=== PATIENT | female | born 1940 | race Caucasian/White ===

== ENCOUNTER → 2018-08-17 08:38 | Outpatient (CLI) | payer OTHER, SELFPAY | PROVIDERS: Family Provider Internal Medicine; PCP Internal Medicine; Visit Provider Physical Medicine & Rehabilitation | DX: M48.02 Spinal stenosis, cervical region (principal); Z98.1 Arthrodesis status; Z53.9 Procedure and treatment not carried out, unspecified reason | CPT/HCPCS: 72141 ==

== ENCOUNTER → 2018-09-10 12:05 | Outpatient (CLI) | payer OTHER, SELFPAY ==
--- NOTE | 2018-09-10 12:06 | DI.MRI.S_ITS ---
PROCEDURE: MR CERVICAL SPINE WO CON INDICATIONS: Evaluation TECHNIQUE: Noncontrast sagittal T1 spin echo and T2 fast spin echo, sagittal STIR, foraminal oblique sagittal T2 fast spin echo, and axial gradient echo or T2 fast spin echo through the cervical spine. COMPARISON: [facility], CR, CERVICAL SPINE 2 OR 3 VIEWS, 10/25/2017, 9:50. [facility], MR, C-SPINE WITHOUT CONTRAST, 08/24/2017, 9:27. [facility], CR, XR CERVICAL SPINE 2 OR 3 VIEWS, 02/08/2018, 9:17. FINDINGS: Image quality: Excellent. Alignment and Curvature: There is mild, grade 1 anterolisthesis of C7 on T1, T1 on T2, and T2 and T3, as before. Bone Marrow: Marrow demonstrates normal overall signal. Status post anterior fusion of C4-T1, new compared to 08.24.17. Spinal Cord: Visualized spinal cord has normal size and signal. No cerebellar tonsillar herniation. Paraspinous Soft Tissues: No paravertebral masses. Prevertebral soft tissues are normal in thickness. C2-C3: Disc desiccation. Bilateral facet hypertrophy. No significant canal stenosis, or foraminal stenosis. No change. C3-C4: Moderate disc height loss and desiccation. Mild facet and uncovertebral hypertrophy bilaterally. No canal stenosis. Mild bilateral foraminal stenosis. No change. C4-C5: Status post fusion. Bilateral facet and uncovertebral hypertrophy. Resolution of previously seen canal stenosis. No change in moderate bilateral foraminal stenosis. C5-C6: Status post fusion. Bilateral facet and uncovertebral hypertrophy. Resolution of previously seen canal stenosis. No change in mild bilateral foraminal stenosis. C6-C7: Status post fusion. Bilateral facet and uncovertebral hypertrophy. Resolution of previously seen canal stenosis. Mild bilateral foraminal stenosis is unchanged. C7-T1: Status post fusion. Bilateral facet and uncovertebral hypertrophy. Resolution of previously seen canal stenosis. No change in moderate bilateral foraminal stenosis. IMPRESSION: 1. C4-T1 fusion, with resolution of previously seen canal stenoses at the fused levels. 2. No change in multilevel foraminal stenoses, worst at C4-C5 and C7-T1, where there are moderate foraminal stenoses present. Dictated by: Simone Amador M.D. on 09/10/2018 at 13:34 Approved by: Simone Amador M.D. on 09/10/2018 at 13:40
--- NOTE | 2018-09-10 12:06 | DI.MRI.S_ITS ---
PROCEDURE: MR LUMBAR SPINE WO CON INDICATIONS: lumbar spine pain TECHNIQUE: Noncontrast sagittal T1 spin echo and T2 fast echo, coronal T2, sagittal STIR, axial T1 and T2 fast spin echo through the lumbar spine. COMPARISON: [facility], MR, L-SPINE WITHOUT CONTRAST, 05/19/2017, 10:13. [facility], CR, L-SPINE 2-3 VIEWS, 02/24/2010, 10:16. FINDINGS: Image quality: Excellent. Alignment and Curvature: The same numbering system that was used on the prior report will be used on the current examination, as denoted on the montage panel. There is moderate rightward curvature of the mid lumbar spine. There is mild grade 1 retrolisthesis of T11 on T12 and T12 on L1. There is mild grade 1 anterolisthesis of L2 on L3 and L3 on L4. There is mild grade 1 retrolisthesis of L4 on L5. Bone Marrow: Marrow is of normal overall signal. No acute vertebral body compression fractures. Moderate reactive signal within the endplates adjacent to the the L2-L3 and L3-L4 intervertebral discs. Mild reactive signal within the endplates adjacent to the L1-L2 and L4-L5 intervertebral discs is present. Spinal Cord: Conus medullaris terminates at the lower L1 level. Visualized cord demonstrates normal signal and size. Paraspinous Soft Tissues: No paravertebral masses. T12-L1: Mild disc height loss and desiccation. Mild diffuse disc bulge. Mild facet and ligamentum flavum hypertrophy bilaterally. Mild canal stenosis. Mild foraminal stenosis bilaterally. No change. L1-L2: Moderate disc height loss and desiccation. Moderate diffuse disc bulge. Moderate facet and ligamentum flavum hypertrophy bilaterally. Mild epidural lipomatosis. Moderate canal stenosis. Moderate left and mild right foraminal stenosis. No change. L2-L3: Severe disc height loss and desiccation. Moderate diffuse disc bulge/osteophyte. Moderate facet hypertrophy. Mild ligamentum flavum hypertrophy and epidural lipomatosis. Severe canal stenosis. Severe left and mild right foraminal stenosis. Flattening deformity of the left L2 nerve root within the neural foramen. No change. L3-L4: Severe disc height loss and desiccation. Moderate diffuse disc bulge/osteophyte. Moderate facet and ligamentum flavum hypertrophy bilaterally. Moderate canal stenosis. Moderate to severe left and mild right foraminal stenosis. Mild flattening deformity of the left L3 nerve root within the neural foramen. No change. L4-L5: Severe disc height loss and desiccation. Moderate diffuse disc bulge/osteophyte. Mild facet hypertrophy bilaterally. Mild canal stenosis. Moderate foraminal stenosis bilaterally. No change. L5-S1: Moderate disc height loss and desiccation. Mild diffuse disc bulge. Mild facet hypertrophy bilaterally. Mild canal stenosis. Moderate right and mild left foraminal stenosis. No change. IMPRESSION: 1. Numbering system for the current report is identical to the numbering system which was used on the prior report, and as denoted on the montage panel. 2. Multilevel degenerative disc and facet disease, as well as ligament flavum hypertrophy and epidural lipomatosis. 3. Multilevel canal stenoses, worst at L2-L3, where there is severe canal stenosis. 4. Multilevel foraminal stenoses, worst at L2-L3 on the left, and at L3-L4 on the left, where there is associated neural flattening as described above. 5. Recommend correlation with clinical symptoms to ascertain relevance of these findings. Dictated by: Simone Amador M.D. on 09/10/2018 at 15:13 Approved by: Simone Amador M.D. on 09/10/2018 at 15:23
== END ==
PROVIDERS: PCP Internal Medicine; Visit Provider Physical Medicine & Rehabilitation
DX: M48.02 Spinal stenosis, cervical region (principal); M48.07 Spinal stenosis, lumbosacral region; M51.36 Other intervertebral disc degeneration, lumbar region; M48.062 Spinal stenosis, lumbar region with neurogenic claudication; E88.2 Lipomatosis, not elsewhere classified; M51.37 Other intervertebral disc degeneration, lumbosacral region; Z98.1 Arthrodesis status
CPT/HCPCS: 72141; 72148

== ENCOUNTER 2018-10-30 13:25 | Outpatient (CLI) | payer OTHER, SELFPAY ==
[2018-10-30] VITALS (9 sets, daily range): BP systolic 106–187; BP diastolic 60–96; PULSE 56–70; RESP 16–20; TEMP 37.2; O2SAT 96–99
--- NOTE | 2018-10-30 13:26 | DI.RAD.S_ITS ---
PROCEDURE: PAIN L/S TRANSFORAMINAL INJECT INDICATIONS: SPINAL STENOSIS FINDINGS: Fluoroscopic spot filming was performed to verify placement of spinal needles at the L3-L4 level(s), as labeled on the films. Appropriate location(s) of the needle tip(s) was confirmed by injection of iodinated contrast. Dictated by: Otto Contreras M.D. on 10/31/2018 at 9:43 Approved by: Otto Contreras M.D. on 10/31/2018 at 9:43
[2018-10-30] MEDS: MIDAZOLAM 5 MG/5 ML VIAL IV (14:54)
[2018-10-30] MEDS: BUPIVACAINE 0.25% (PF) VIAL 2 ML INJ (14:58)
[2018-10-30] MEDS: IOPAMIDOL 15 ML VIAL 3 ML INJ (14:58)
[2018-10-30] MEDS: DEXAMETHASONE 10 MG/ML VIAL 20 MG INJ (14:59)
[2018-10-30] MEDS: methylPREDNISolone acetate 80 MG/ML VIAL INJ (14:59)
--- NOTE | 2018-10-30 15:03 | PC.NURSE ---
ASSISTING PT FROM TABLE AND TRANSPORTING TO POST PROC AREA IN STABLE CONDITION
--- NOTE | 2018-10-30 15:08 | P.PCN_ITS ---
Procedures Date/Time Date of procedure: 10/30/18 Time of procedure: 15:07 General Procedure description: PROVIDER: Volodymyr Platt DO Operative Note PREOP DIAGNOSIS 1. FORAMINAL STENOSIS WITH LE SYMPTOMS, POST OP DIAGNOSIS 1. FORAMINAL STENOSIS WITH LE SYMPTOMS, PROCEDURES 1. FLUOROSCOPICALLY GUIDED CONTRAST CONTROLLED TRANSFORAMINAL EPIDURAL STEROID INJECTION - LEFT L3/4 TFESI SURGEON: Volodymyr Platt, INDICATIONS Liberty is referred by Dr. Baeza for treatment of Foraminal Stenosis with left LE Symptoms FINDINGS Foraminal Nerve Root Compression secondary to disc disease and facet hypertrophy DESCRIPTION OF PROCEDURE Following denial of allergy and review of potential side effects and complications, including, but not necessarily limited to, infection, allergic reaction, local tissue breakdown, stroke, temporary or permanent nerve injury, paralysis, and possible , the patient indicated that the patient understood and agreed to proceed. An informed consent document was signed by the patient, witnessed by a nurse, and placed in the patient's chart. Additionally, other treatment options including medications, modalities, and physical therapy were reviewed with the patient. After review of previous anaesthesic history and IV conscious sedation the patient was deemed safe to proceed with todays procedure with IV conscious sedation as ASA class II designation. Safety time-out was performed to confirm patient ID, procedure to be performed and site of procedure. IV sedation was accomplished with a combination of 3mg was administered by the RN after DO order , titrated to patient comfort during the course of the procedure while the patient remained responsive to all verbal commands In the prone position following sterile prep and drape of the lumbar region, the left L3/4 posterior neuroforamen was identified fluoroscopically. The skin was anesthetized via a 25-gauge 1.5-inch needle with 1% lidocaine solution. At this point, a 25-gauge 3.5-inch spinal needle was atraumatically introduced and advanced under fluoroscopic guidance through the posterior left L3/4 neuroforamen to approximately the anterior aspect of the canal. Depth was confirmed on lateral view. Following negative aspiration, injection of approximately 1.5 cc of Isovue 200 under live fluoroscopy in the AP view confirmed excellent flow along the nerve root, into the epidural space without vascular or intrathecal uptake observed Radiological data, including multiple fluoroscopic views of the lumbosacral spine, reveal a spinal needle at the left L3/4 posterior neuroforamen. Subsequent views show flow of contrast material flowing superiorly and inferiorly along the nerve root confirming epidural flow. Subsequently, a test dose of 1.5 cc of 1% lidocaine solution was administered and patient was observed for two minutes for signs or symptoms of complications , including abdominal pain, shortness of breath, bilateral upper or lower extremity weakness, nausea and vomiting, prior to steroid injection. At this point, a total of 3 cc or 20 mg of dexamethasone and 80mg Depo medrol was injected without incident. The patient tolerated the procedure well without signs or symptoms of complications prior to transfer to the recovery area continued monitoring without incident. The patient was then transferred to the recovery area where they were observed for an appropriate time after the injection. The patient reported a VAS score of 7 prior to the procedure and a post-procedure VAS of 0. Total Fluoroscopy Time: 24.2 seconds Total Conscious Sedation Time: 24min POST OP INSTRUCTIONS The patient was provided a Pain Log to continue to record their response to the target-specific procedure prior to follow-up visit with their referring physician. Additionally, specific post-injection care instructions and a contact number to our office were provided if concerns arise regarding possible complications associated with the procedure are suspected. Volodymyr Platt, Complications: none
--- NOTE | 2018-10-30 15:36 | PC.NURSE ---
Received pt post procedure via w/c, pt alert and cooperative, able to move from w/c to chair, resumed monitoring.
--- NOTE | 2018-10-31 12:25 | PC.NURSE ---
Follow up call made and Liberty reports pain is gone but she is an emotional mess from the steroids. I suggested that she take some Benadryl and she said she didn't have any, and that she wet her pants but her leg pain is gone and she is so grateful. She also said she had some Valium and she was going to take that. Dr. Platt aware of this.
== END 2018-10-30 15:41 ==
LOC: RAD 13:26
PROVIDERS: PCP Internal Medicine; Visit Provider Physical Medicine & Rehabilitation
DX: M48.062 Spinal stenosis, lumbar region with neurogenic claudication (principal); M51.16 Intervertebral disc disorders with radiculopathy, lumbar region; M41.20 Other idiopathic scoliosis, site unspecified; G89.29 Other chronic pain; Z98.1 Arthrodesis status
CPT/HCPCS: 64483; 99152; J1040; J1100; J2250

== ENCOUNTER 2018-12-26 09:42 | Outpatient (CLI) | payer OTHER, SELFPAY ==
[2018-12-26] VITALS (8 sets, daily range): BP systolic 110–165; BP diastolic 60–77; PULSE 56–61; RESP 16–18; TEMP 36.3; O2SAT 97–100
--- NOTE | 2018-12-26 09:43 | DI.RAD.S_ITS ---
PROCEDURE: PAIN L INTERLAMINAR/CAUDAL INJ INDICATIONS: SPINAL STENOSIS FINDINGS: Fluoroscopic spot filming was performed to verify placement of spinal needles at the L3-L4 level(s), as labeled on the films. Appropriate location(s) of the needle tip(s) was confirmed by injection of iodinated contrast. Dictated by: Otto Contreras M.D. on 12/26/2018 at 12:02 Approved by: Otto Contreras M.D. on 12/26/2018 at 12:03
[2018-12-26] MEDS: MIDAZOLAM 5 MG/5 ML VIAL IV (10:28)
[2018-12-26] MEDS: fentaNYL 100 MCG/2 ML INJ 50 MCG IV (10:35)
[2018-12-26] MEDS: BUPIVACAINE 0.25% (PF) VIAL 2 ML INJ (10:38)
[2018-12-26] MEDS: IOPAMIDOL 15 ML VIAL 3 ML INJ (10:38)
[2018-12-26] MEDS: BETAMETHASONE 30 MG/5 ML MDV 12 MG INJ (10:39)
--- NOTE | 2018-12-26 10:40 | PC.NURSE ---
assisting pt off table and transporting per WC in stable condition
--- NOTE | 2018-12-26 10:41 | P.PCN_ITS ---
Procedures Date/Time Date of procedure: 12/26/18 Time of procedure: 10:40 General Procedure description: POST OP DIAGNOSIS 1. HNP WITH RADICULAR FEATURES, 2. MULTILEVEL CENTRAL STENOSIS, PROCEDURES 1. FLUORSCOPICALLY GUIDED CONTRAST CONTROLLED INTERLAMINAR EPIDURAL STEROID INJECTION - L3/4 PHYSICIAN: Volodymyr Platt, INDICATIONS Liberty is referred by Dr. Baeza for treatment of Bilateral Foraminal Stenosis L >R LE symptoms. FINDINGS Multilevel Central Spinal Stenosis with Nerve Root Compression DESCRIPTION OF PROCEDURE Fluoroscopically guided, contrast-controlled L3/4 translaminar epidural steroid injection. Following denial of allergy and review of potential side effects and complications, including, but not necessarily limited to, infection, allergic reaction, local tissue breakdown, temporary as well as permanent nerve injury, paralysis, stroke and possible , the patient indicated that the patient understood and agreed to proceed. An informed consent document was signed by the patient, witnessed by a nurse, and placed in the patient's chart. Additionally, other treatment options including modalities, medications, and physical therapy were reviewed with the patient. After review of previous anaesthesic history and IV conscious sedation the patient was deemed safe to proceed with todays procedure with IV conscious sedation as ASA class II designation. Safety time-out was performed to confirm patient ID, procedure to be performed and site of procedure. IV sedation was accomplished with a combination of 2mg of Versed and 25mcg of Fentanyl was administered by the RN after DO order, titrated to patient comfort during the course of the procedure while the patient remained responsive to all verbal commands. In the prone position, following sterile prep and drape of the lumbar region, the L3/4 translaminar space was identified fluoroscopically. The skin was anesthetized via a 25-gauge, 1.5-inch needle with 1% lidocaine solution. At this point, a 22-gauge short bevel spinal needle was atraumatically introduced and advanced under fluoroscopic guidance into the region of the L3/4 translaminar space. Depth was confirmed on lateral view. Radiological data, including multiple fluoroscopic views of the lumbar spine, reveal a spinal needle at the L3/4 translaminar space. Lateral views then show placement of the needle in the epidural space. Subsequent views show contrast material flowing superiorly and inferiorly in the epidural space. No vascular or intrathecal uptake is observed. At this point, using loss of resistance technique with saline and air, the epidural space was entered. This was confirmed following negative aspiration with injection of approximately 1.5 cc of Isovue 200, showing excellent epidural flow without vascular or intrathecal uptake. At this point, 1 cc of 1 % lidocaine solution combined with 3 cc or 20 mg of dexamethasone and 80mg Depo medrol was injected without incident. The patient tolerated the procedure well without signs or symptoms of complications prior to transfer to the recovery area continued monitoring without incident. The patient was then transferred to the recovery area where they were observed for an appropriate period of time after the injection. The patient reported a VAS score of 6 prior to the procedure and a post- procedure VAS of 0. Total Fluoroscopy Time: 11.8 seconds Total Conscious Sedation Time: 24min POST OP INSTRUCTIONS The patient was provided a Pain Log to continue to record their response to the target-specific procedure prior to follow-up visit with their referring physician. Additionally, specific post-injection care instructions and a contact number to our office were provided if concerns arise regarding possible complications associated with the procedure are suspected. Volodymyr Platt DO Complications: none
--- NOTE | 2018-12-26 11:01 | PC.NURSE ---
pt returned from procedure via w/c, awake and alert. Able to move from w/c to chair with standby assist, Resumed monitoring.
--- NOTE | 2018-12-26 11:30 | PC.NURSE ---
pt able to bear weight but a little unsteady on her feet related to the valium and versed. Pt is going home and will rest.
== END 2018-12-26 11:16 ==
LOC: RAD 09:42
PROVIDERS: PCP Internal Medicine; Visit Provider Physical Medicine & Rehabilitation
DX: M51.16 Intervertebral disc disorders with radiculopathy, lumbar region (principal); M48.062 Spinal stenosis, lumbar region with neurogenic claudication
CPT/HCPCS: 62323; J0702; J1040; J1100; J2250; J3010

== ENCOUNTER 2019-02-13 08:41 | Outpatient (CLI) | payer OTHER, SELFPAY ==
[2019-02-13] VITALS (8 sets, daily range): BP systolic 115–147; BP diastolic 55–111; PULSE 52–61; RESP 16; TEMP 36.5; O2SAT 93–99
--- NOTE | 2019-02-13 08:42 | DI.RAD.S_ITS ---
PROCEDURE: PAIN L/S TRANSFORAMINAL INJECT INDICATIONS: SCOLIOSIS FINDINGS: Fluoroscopic spot filming was performed to verify placement of spinal needles at the L4-L5 level(s), as labeled on the films. Appropriate location(s) of the needle tip(s) was confirmed by injection of iodinated contrast. IMPRESSION: Fluoroscopy for pain management. Dictated by: Мария Riddle M.D. on 02/13/2019 at 11:04 Approved by: Мария Riddle M.D. on 02/13/2019 at 11:05
[2019-02-13] MEDS: IOPAMIDOL 15 ML VIAL 3 ML INJ (09:35)
[2019-02-13] MEDS: BUPIVACAINE 0.25% (PF) VIAL 2 ML INJ (09:36)
[2019-02-13] MEDS: DEXAMETHASONE 10 MG/ML VIAL 20 MG INJ (09:36)
[2019-02-13] MEDS: MIDAZOLAM 5 MG/5 ML VIAL IV (09:39)
[2019-02-13] MEDS: fentaNYL 100 MCG/2 ML INJ 50 MCG IV (09:39)
--- NOTE | 2019-02-13 09:50 | PC.NURSE ---
Pt tolerated procedure. 2 person assist off the table, pt awake and alert. Transferred to pre procedure room via wheelchair for continuing monitoring with [facility].
--- NOTE | 2019-02-13 10:01 | P.PCN_ITS ---
Procedures Date/Time Date of procedure: 02/13/19 Time of procedure: 10:00 General Procedure description: PREOP DIAGNOSIS 1. FORMAINAL STENOSIS WITH LE SYMPTOMS POST OP DIAGNOSIS 1. FORMAINAL STENOSIS WITH LE SYMPTOMS PROCEDURES 1. FLUOROSCOPICALLY GUIDED CONTRAST CONTROLLED TRANSFORAMINAL EPIDURAL STEROID INJECTION - LEFT L4/5 PHYSICIAN: Volodymyr Platt DO INDICATIONS: Liberty is referred by Dr. Baeza for treatment of Foraminal Stenosis with Left LE Symptoms FINDINGS Foraminal Nerve Root Compression secondary to disc disease and facet hypertrophy DESCRIPTION OF PROCEDURE: Following denial of allergy and review of potential side effects and complications, including, but not necessarily limited to, infection, allergic reaction, local tissue breakdown, stroke, temporary or permanent nerve injury, paralysis, and possible , the patient indicated that the patient understood and agreed to proceed. An informed consent document was signed by the patient, witnessed by a nurse, and placed in the patient's chart. Additionally, other treatment options including medications, modalities, and physical therapy were reviewed with the patient. After review of previous anaesthesic history and IV conscious sedation the dago ent was deemed safe to proceed with todays procedure with IV conscious sedation as ASA class II designation. Safety time-out was performed to confirm patient ID, procedure to be performed and site of procedure. IV sedation was accomplished with a combination of 1mg of Versed and 50mcg of Fentanyl administered by the RN after DO order, titrated to patient comfort during the course of the procedure while the patient remained responsive to all verbal commands In the prone position following sterile prep and drape of the lumbar region, the left L4/5 posterior neuroforamen was identified fluoroscopically. The skin was anesthetized via a 25-gauge 1.5-inch needle with 1% lidocaine solution. At this point, a 25-gauge 3.5-inch spinal needle was atraumatically introduced and advanced under fluoroscopic guidance through the posterior left L4/5 neuroforamen to approximately the anterior aspect of the canal. Depth was confirmed on lateral view. Following negative aspiration, injection of melanie roximately 1.5 cc of Isovue 200 under live fluoroscopy in the AP view confirmed excellent flow along the nerve root, into the epidural space without vascular or intrathecal uptake observed Radiological data, including multiple fluoroscopic views of the lumbosacral spine, reveal a spinal needle at the left L4/5 posterior neuroforamen. Subsequent views show flow of contrast material flowing superiorly and inferiorly along the nerve root confirming epidural flow. Subsequently, a test dose of 1.5 cc of 1% lidocaine solution was administered and patient was observed for two minutes for signs or symptoms of complications, including abdominal pain, shortness of breath, bilateral upper or lower extremity weakness, nausea and vomiting, prior to steroid injection. At this point, a total of 2cc or 20mg of dexamethasone was injected without incident. The procedure tolerated the procedure well without signs or symptoms of complications prior to transfer to the recovery area continued monitoring without incident. The patient was then transferred to the recovery area where they were observed for an appropriate time after the injection. The patient reported a VAS score of 7 prior to the procedure and a post- procedure VAS of 0. Total Fluoroscopy Time: 20.9 seconds Total Conscious Sedation Time: 24min POST OP INSTRUCTIONS The patient was provided a Pain Log to continue to record their response to the target-specific procedure prior to follow-up visit with their referring physician. Additionally, specific post-injection care instructions and a contact number to our office were provided if concerns arise regarding possible complications associated with the procedure are suspected. Volodymyr Platt DO Complications: none
--- NOTE | 2019-02-13 10:01 | PC.NURSE ---
ACCEPTED CARE OF PT IN POST PROC AREA IN STABLE CONDITION
== END 2019-02-13 10:55 | disposition home or self-care (01) ==
LOC: RAD 08:42
PROVIDERS: PCP Internal Medicine; Visit Provider Physical Medicine & Rehabilitation
DX: M48.062 Spinal stenosis, lumbar region with neurogenic claudication (principal); M51.16 Intervertebral disc disorders with radiculopathy, lumbar region; M41.20 Other idiopathic scoliosis, site unspecified
CPT/HCPCS: 64483; 99152; J1100; J2250; J3010

== ENCOUNTER → 2019-04-29 09:38 | Outpatient (CLI) | payer OTHER, SELFPAY ==
--- NOTE | 2019-04-29 09:45 | DI.CT.S_ITS ---
PROCEDURE: CT LUMBAR SPINE WO CON INDICATIONS: LUMBAR SPINAL STENOSIS TECHNIQUE: Noncontrast 3 mm thick sections acquired from the T12 level to the sacrum. Sagittal and coronal reformats were constructed. For radiation dose reduction, the following was used: automated exposure control. COMPARISON: None. FINDINGS: Image quality: Excellent. Bones: There is moderate dextroscoliosis of lumbar spine centered at L2-3 level, unchanged from prior study. Minimal anterolisthesis are noted at L2-3 and L3-4 levels. Minimal retrolisthesis of L4 on L5 is also noted. No acute vertebral body compression fractures. No suspicious lytic or blastic bony lesions. Central spinal caliber is of normal overall caliber. No pars defects. T12-L1: Diffuse disc bulge and bilateral facet arthrosis is seen with mild central canal stenosis and bilateral neural foramina narrowing. L1-L2: Decrease in intervertebral disc space and degenerative endplate changes are seen with vacuum disc phenomena. Bilateral facet arthrosis is also noted. There is broad-based disc bulge with moderate central canal stenosis and bilateral neuroforaminal narrowing. Findings are not significantly changed from previous study. L2-L3: Vacuum disc phenomenon and decreased intervertebral disc space is seen. Broad-based disc bulge and bilateral facet arthrosis is noted with moderate to severe central canal stenosis and left worse than right bilateral neuroforaminal narrowing not significantly changed from previous study. L3-L4: There is vacuum disc phenomenon and decreased intervertebral disc space. Broad-based disc bulge and bilateral facet arthrosis is seen with severe central canal stenosis and bilateral neuroforaminal narrowing not significantly changed from prior study L4-L5: Decreased intervertebral disc space and degenerative endplate changes are seen with vacuum disc phenomenon. Broad-based disc bulge and bilateral facet arthrosis is seen with mild central canal stenosis and moderate to severe bilateral neuroforaminal narrowing. L5-S1: Decreased intervertebral disc space and degenerative endplate changes are seen. There is diffuse disc bulge and bilateral facet arthrosis with mild to moderate central canal stenosis and bilateral neuroforaminal narrowing. Soft tissues: No retroperitoneal masses or hematomas. Visualized aorta is normal in caliber. IMPRESSION: 1. Degenerative disc bulge and bilateral facet arthrosis throughout lumbar spine causing moderate to severe central canal stenosis and bilateral neuroforaminal narrowing more prominent at L3-4 level, not significantly changed from 2018 study. 2. Minimal anterolisthesis of L2 on L3 and L3 on L4 and minimal retrolisthesis of L4 on L5. Moderate dextroscoliosis. No acute compression fracture. Dictated by: Michael Garduno M.D. on 04/29/2019 at 12:21 Approved by: Michael Garduno M.D. on 04/29/2019 at 12:48
== END ==
PROVIDERS: Family Provider Orthopaedic Surgery; PCP Internal Medicine; Visit Provider Neurological Surgery
DX: M48.062 Spinal stenosis, lumbar region with neurogenic claudication (principal); M47.816 Spondylosis without myelopathy or radiculopathy, lumbar region; M47.817 Spondylosis without myelopathy or radiculopathy, lumbosacral region; M51.36 Other intervertebral disc degeneration, lumbar region; M51.37 Other intervertebral disc degeneration, lumbosacral region; M41.86 Other forms of scoliosis, lumbar region
CPT/HCPCS: 72131

== ENCOUNTER → 2019-05-10 07:43 | Outpatient (CLI) | payer OTHER, SELFPAY ==
[2019-05-10 08:12] LABS: Add Manual Diff / Slide Review NO; Basophils Absolute Auto 0 /uL (0-100); Basophils Percent Auto 0.6 % (0-2); Eosinophils Absolute Auto 200 /uL (0-450); Eosinophils Percent Auto 3.4 % (2-4); Hematocrit 37.2 % (36-46); Hemoglobin 12.6 g/dL (12.0-16.0); Lymphocytes Absolute Auto 2300 /uL (1100-4500); Lymphocytes Percent Auto 37.7 % (25-40); Mean Corpuscular HGB Conc 33.8 % (30-36); Mean Corpuscular Hemoglobin 30.5 PG (26-34); Mean Corpuscular Volume 90.2 fL (80-100); Monocytes Absolute Auto 700 /uL (0-900); Monocytes Percent Auto 11.3 % (3-14); Neutrophils Absolute Auto 2900 /uL (1500-7000); Platelet Count 267 X10^3/uL (150-400); Red Blood Cell Count 4.13 X10^6/uL (4.0-5.2); Red Cell Distribution Width 13.5 % (11.6-14.8); White Blood Cell Count 6.1 X10^3/uL (4.5-11.0)
[2019-05-10 08:43] LABS: Erythrocyte Sedimentation Rate 11 MM/HR (0-20)
[2019-05-10 09:09] LABS: Alanine Aminotransferase 13 IU/L (9-52); Albumin 4.3 g/dL (3.5-5.0); Albumin Globulin Ratio 1.4 (1.0-2.8); Alkaline Phosphatase 47 U/L (38-126); Aspartate Aminotransferase 23 IU/L (14-36); BUN Creatinine Ratio 24.2 (6-22); Bilirubin Total 0.5 mg/dL (0.2-1.3); Blood Urea Nitrogen 29 mg/dL (7-17); C-Reactive Protein Quant 0.6 mg/dL (<1.0); Calcium 9.3 mg/dL (8.4-10.2); Carbon Dioxide 31 mmol/L (22-32); Chloride 101 mmol/L (98-107); Cholesterol 172 mg/dL (140-199); Estimated Glomerular Filt Rate 43.4 mL/min (>60); Glucose 102 mg/dL (80-110); HDL Cholesterol 46 mg/dL (40-60); HEMOLYSIS < 15 (0-50); LDL Cholesterol Calculated 95 mg/dL (<100); Sodium 137 mmol/L (137-145); Total Protein 7.3 g/dL (6.3-8.2); Triglycerides 154 mg/dL (35-150)
[2019-05-10 09:14] LABS: Potassium 5.6 mmol/L (3.4-5.1)
== END ==
PROVIDERS: PCP Internal Medicine; Visit Provider Internal Medicine
DX: E78.5 Hyperlipidemia, unspecified (principal); G89.4 Chronic pain syndrome; I10 Essential (primary) hypertension
CPT/HCPCS: 36415; 80053; 80061; 85025; 85651; 86140

== ENCOUNTER → 2019-08-02 14:06 | Outpatient (CLI) | payer OTHER, SELFPAY ==
--- NOTE | 2019-08-02 | DI.RAD.S_ITS ---
PROCEDURE: XR LUMBAR SPINE 2-3V INDICATIONS: SPINAL SURGERY TECHNIQUE: 3 views of the lumbar spine were acquired. COMPARISON: [facility], CT, CT LUMBAR SPINE WO CON, 04/29/2019, 9:46. [facility], CR, L-SPINE 2-3 VIEWS, 02/24/2010, 10:16. FINDINGS: Bones: 5 [id number] vertebrae are present. Mild dextroscoliosis centered at the L3 level. Interval posterior/interbody fusion at the L2-L3 level with hardware in expected positions. Multilevel disc degeneration and lower lumbar spine facet joint arthropathy redemonstrated. Bones are osteopenic. No vertebral body compression fractures. No suspicious bony lesions. Soft tissues: Overlying bowel gas pattern is normal. No suspicious soft tissue calcifications. Vascular calcifications indicate atherosclerosis. IMPRESSION: 1. Interval posterior/interbody fusion at the L2-L3 level. 2. Multilevel degenerative change and diffuse osteopenia. Dictated by: Scooby RM Interpreted: Otto Contreras MD on 08/02/2019 at 15:50 Approved by: Otto Contreras M.D. on 08/02/2019 at 17:23
== END ==
PROVIDERS: Family Provider Internal Medicine; PCP Internal Medicine; Visit Provider Physician Assistant Medical
DX: M51.36 Other intervertebral disc degeneration, lumbar region (principal); M41.86 Other forms of scoliosis, lumbar region; M48.061 Spinal stenosis, lumbar region without neurogenic claudication; M85.88 Other specified disorders of bone density and structure, other site; Z98.1 Arthrodesis status
CPT/HCPCS: 72100

== ENCOUNTER → 2020-01-08 15:14 | Outpatient (CLI) | payer OTHER, SELFPAY | PROVIDERS: Family Provider Internal Medicine; PCP Internal Medicine; Referring Provider Ophthalmology; Visit Provider Ophthalmology | DX: H16.4 Corneal neovascularization (principal) | CPT/HCPCS: 87070; 87075; 87077; 87110; 87140; 87147; 87186; 87205; 87252 ==

== ENCOUNTER → 2020-05-01 09:29 | Outpatient (CLI) | payer OTHER, SELFPAY ==
[2020-05-01 10:44] LABS: Add Manual Diff / Slide Review NO; Basophils Absolute Auto 0 /uL (0-100); Basophils Percent Auto 0.6 % (0-2); Eosinophils Absolute Auto 200 /uL (0-450); Eosinophils Percent Auto 2.8 % (2-4); Hematocrit 40.1 % (36-46); Hemoglobin 13.6 g/dL (12.0-16.0); Lymphocytes Absolute Auto 2400 /uL (1100-4500); Lymphocytes Percent Auto 32.8 % (25-40); Mean Corpuscular Hemoglobin 30.7 PG (26-34); Mean Corpuscular Volume 90.5 fL (80-100); Monocytes Absolute Auto 700 /uL (0-900); Monocytes Percent Auto 9.6 % (3-14); Neutrophils Absolute Auto 4000 /uL (1500-7000); Neutrophils Percent Auto 54.2 % (50-75); Platelet Count 285 X10^3/uL (150-400); Red Blood Cell Count 4.43 X10^6/uL (4.0-5.2); Red Cell Distribution Width 13.7 % (11.6-14.8); White Blood Cell Count 7.4 X10^3/uL (4.5-11.0)
[2020-05-01 11:34] LABS: Alanine Aminotransferase 14 IU/L (<35); Albumin 4.7 g/dL (3.5-5.0); Albumin Globulin Ratio 1.3 (1.0-2.8); Alkaline Phosphatase 58 U/L (38-126); Aspartate Aminotransferase 29 IU/L (14-36); BUN Creatinine Ratio 23.9 (6-22); Bilirubin Total 0.5 mg/dL (0.2-1.3); Blood Urea Nitrogen 21 mg/dL (7-17); Calcium 9.6 mg/dL (8.4-10.2); Carbon Dioxide 29 mmol/L (22-32); Chloride 102 mmol/L (98-107); Cholesterol 195 mg/dL (140-199); Estimated Glomerular Filt Rate > 60.0 mL/min (>60); Globulin 3.5 g/dL (1.7-4.1); Glucose 105 mg/dL (80-110); HDL Cholesterol 46 mg/dL (40-60); HEMOLYSIS < 15 (0-50); LDL Cholesterol Calculated 113 mg/dL (<100); Potassium 4.3 mmol/L (3.4-5.1); Sodium 139 mmol/L (137-145); Total Protein 8.2 g/dL (6.3-8.2); Triglycerides 180 mg/dL (35-150)
== END ==
PROVIDERS: Family Provider Internal Medicine; PCP Internal Medicine; Referring Provider Internal Medicine; Visit Provider Internal Medicine
DX: I10 Essential (primary) hypertension (principal); N18.2 Chronic kidney disease, stage 2 (mild)
CPT/HCPCS: 36415; 80053; 80061; 85025

== ENCOUNTER → 2021-08-23 11:34 | Outpatient (CLI) | payer OTHER, SELFPAY ==
--- NOTE | 2021-08-23 | DI.CT.S_ITS ---
PROCEDURE: CT CERVICAL SPINE WO CON INDICATIONS: Spinal stenosis TECHNIQUE: Noncontrast 3 mm thick sections acquired from the skull base to the T4 level. Sagittal and coronal reformats were then constructed. For radiation dose reduction, the following was used: automated exposure control, adjustment of mA and/or kV according to patient size. COMPARISON: [facility], MR, MR CERVICAL SPINE WO CON, 09/10/2018, 12:31. [facility], CR, XR CERVICAL SPINE 2 OR 3 VIEWS, 08/03/2021, 15:14. FINDINGS: Image quality: Excellent. Bones: No fractures or dislocations. Visualized superior ribs are intact. There is extensive anterior fusion ranging from C4 through T1. There is grade 1 anterolisthesis of C2 on C3, C4 on C5, C7 on T1 and T1 on T2 measuring approximately 2 mm, 2 mm, 3 mm, 2 mm respectively. Hardware appears intact without evidence of hardware fracture. There is periprosthetic lucency surrounding the orthopedic screws, left greater than right at T1. No disc bulge or spinal stenosis. Mild left foraminal narrowing is present at C2-3, slightly progressive, [id number] bilateral C3-4, progressive moderate to severe left and moderate right C4-5, slightly progressive, moderate bilateral C5-6, slightly progressive, mild bilateral C6-7, stable, [id number] bilateral C7-T1, stable. No spinal stenosis is present. Multilevel uncovertebral hypertrophy is present. Soft tissues: Prevertebral soft tissues are normal in thickness. No paravertebral hematomas. No apical pneumothoraces. IMPRESSION: 1. Extensive postsurgical changes, with focal level of periprosthetic lucency suggestive of loosening as described above. 2. No spinal stenosis. 3. Multilevel foraminal narrowing with areas of progression as noted above. Dictated by: Juanita Mcadniel M.D. on 08/23/2021 at 15:42 Approved by: Juanita Mcdaniel M.D. on 08/23/2021 at 15:52
[2021-08-23 12:48] LABS: Alanine Aminotransferase 13 IU/L (<35); Albumin 4.6 g/dL (3.5-5.0); Albumin Globulin Ratio 1.4 (1.0-2.8); Alkaline Phosphatase 48 U/L (38-126); Aspartate Aminotransferase 27 IU/L (14-36); BUN Creatinine Ratio 30.4 (6-22); Bilirubin Total 0.4 mg/dL (0.2-1.3); Blood Urea Nitrogen 28 mg/dL (7-17); Carbon Dioxide 31 mmol/L (22-32); Chloride 100 mmol/L (98-107); Estimated Glomerular Filt Rate 58.7 mL/min (>60); Globulin 3.4 g/dL (1.7-4.1); Glucose 92 mg/dL (80-110); HEMOLYSIS < 15 (0-50); Potassium 4.7 mmol/L (3.4-5.1); Sodium 138 mmol/L (137-145)
== END ==
PROVIDERS: Family Provider Internal Medicine; PCP Internal Medicine; Referring Provider Orthopaedic Surgery Orthopaedic Surgery of the Spine; Visit Provider Orthopaedic Surgery Orthopaedic Surgery of the Spine
DX: M48.02 Spinal stenosis, cervical region (principal); E78.2 Mixed hyperlipidemia; I12.9 Hypertensive chronic kidney disease with stage 1 through stage 4 chronic kidney disease, or unspecified chronic kidney disease; N18.31 Chronic kidney disease, stage 3a; Z98.1 Arthrodesis status
CPT/HCPCS: 36415; 72125; 80053

== ENCOUNTER 2022-07-02 17:14 | Emergency (ER) | payer OTHER, SELFPAY ==
[2022-07-02 17:15] VITALS: BP 192/81; PULSE 58; RESP 18; TEMP 36.6; O2SAT 97; BMI 22.0
--- NOTE | 2022-07-02 17:32 | DI.RAD.S_ITS ---
PROCEDURE: XR SHOULDER LT MIN 2V INDICATIONS: fall TECHNIQUE: 3 views of the shoulder were acquired. COMPARISON: None. FINDINGS: Bones: No fractures or dislocations. No suspicious bony lesions. Visualized ribs appear intact. Mild degenerative changes of the acromioclavicular and glenohumeral joints. Postsurgical changes of lower cervical fusion incompletely evaluated. Soft tissues: Imaged lungs are clear. Small enthesophytes/hydroxyapatite deposition is noted at the humeral head adjacent to the greater trochanter. IMPRESSION: No acute osseous abnormality. Dictated by: Julio Araiza D.O. on 07/02/2022 at 17:35 Approved by: Julio Araiza D.O. on 07/02/2022 at 17:37
--- NOTE | 2022-07-02 17:33 | DI.CT.S_ITS ---
PROCEDURE: CT HEAD/BRAIN WO CON INDICATIONS: fall TECHNIQUE: Noncontrast 4.5 mm thick angled axial sections acquired from the foramen magnum to the vertex, with coronal and sagittal reformats. For radiation dose reduction, the following was used: automated exposure control, adjustment of mA and/or kV according to patient size. COMPARISON: None. FINDINGS: Image quality: Excellent. CSF spaces: Basal cisterns are patent. No extra-axial fluid collections. The ventricles are symmetric in size and shape. Brain: No intracranial bleeds or masses. There is cerebral volume loss for age, with resultant ventricular and sulcal prominence. There are periventricular and deep white matter chronic small vessel ischemic changes. There is intracranial internal carotid artery atherosclerosis. Skull and face: Calvarium and visualized facial bones appear intact, without suspicious lesions. There is a moderate-sized left prefrontal/preorbital subscalp hematoma. Sinuses: Visualized sinuses and mastoids are clear. IMPRESSION: 1. No acute intracranial abnormalities. 2. Cerebral volume loss and chronic microvascular ischemic changes. Dictated by: Мария Riddle M.D. on 07/02/2022 at 18:31 Approved by: Мария Riddle M.D. on 07/02/2022 at 18:32
--- NOTE | 2022-07-02 17:33 | DI.CT.S_ITS ---
PROCEDURE: CT CERVICAL SPINE WO CON INDICATIONS: fall TECHNIQUE: Noncontrast 3 mm thick sections acquired from the skull base to the T4 level. Sagittal and coronal reformats were then constructed. For radiation dose reduction, the following was used: automated exposure control, adjustment of mA and/or kV according to patient size. COMPARISON: [facility], CT, CT CERVICAL SPINE WO CON, 08/23/2021, 12:25. FINDINGS: Image quality: Excellent. Bones: No fractures or dislocations. There is grade 1 anterolisthesis of C2 on C3. There are postsurgical changes with discectomy and anterior fusion at C4-T1. T2 and C3 may be fused. There is mild degenerative disc disease at C2-C3. Multilevel facet arthropathy bilaterally, most pronounced at C2-C3. Moderate atlantoaxial joint degeneration. Visualized superior ribs are intact. Soft tissues: Prevertebral soft tissues are normal in thickness. No paravertebral hematomas. No apical pneumothoraces. Atherosclerotic calcifications at the carotid bifurcations bilaterally. Calcification of aortic arch. IMPRESSION: 1. No acute cervical spine fracture. 2. Degenerative and postsurgical changes in cervical spine. Dictated by: Мария Riddle M.D. on 07/02/2022 at 18:26 Approved by: Мария Riddle M.D. on 07/02/2022 at 18:30
[2022-07-02 17:56] LABS: Add Manual Diff / Slide Review NO; Basophils Absolute Auto 100 /uL (0-100); Basophils Percent Auto 0.6 % (0-2); Eosinophils Absolute Auto 200 /uL (0-450); Eosinophils Percent Auto 2.9 % (2-4); Hematocrit 35.3 % (36-46); Lymphocytes Absolute Auto 1500 /uL (1100-4500); Lymphocytes Percent Auto 19.7 % (25-40); Mean Corpuscular HGB Conc 33.9 % (30-36); Mean Corpuscular Hemoglobin 29.7 PG (26-34); Mean Corpuscular Volume 87.5 fL (80-100); Monocytes Absolute Auto 800 /uL (0-900); Monocytes Percent Auto 9.9 % (3-14); Neutrophils Absolute Auto 5200 /uL (1500-7000); Neutrophils Percent Auto 66.9 % (50-75); Platelet Count 288 X10^3/uL (150-400); Red Blood Cell Count 4.03 X10^6/uL (4.0-5.2); Red Cell Distribution Width 13.6 % (11.6-14.8); White Blood Cell Count 7.8 X10^3/uL (4.5-11.0)
[2022-07-02 18:06] LABS: Alanine Aminotransferase 14 IU/L (<35); Albumin 4.7 g/dL (3.5-5.0); Albumin Globulin Ratio 1.3 (1.0-2.8); Alkaline Phosphatase 57 U/L (38-126); Aspartate Aminotransferase 26 IU/L (14-36); BUN Creatinine Ratio 33.3 (6-22); Bilirubin Total 0.5 mg/dL (0.2-1.3); Blood Urea Nitrogen 32 mg/dL (7-17); Carbon Dioxide 25 mmol/L (22-32); Chloride 100 mmol/L (98-107); Estimated Glomerular Filt Rate 59 mL/min (>60); Globulin 3.7 g/dL (1.7-4.1); Glucose 113 mg/dL (80-110); HEMOLYSIS < 15 (0-50); Sodium 135 mmol/L (137-145); Total Protein 8.4 g/dL (6.3-8.2)
--- NOTE | 2022-07-02 18:16 | ED.FALL ---
HPI - Fall <Cordell Parra PA-C - Last Filed: 07/02/22 19:46> General Chief Complaint: Fall Stated Complaint: GLF to head, blood thinners Time Seen by Provider: 07/02/22 17:47 Source: patient and family Mode of arrival: Wheelchair History of Present Illness HPI Narrative: Patient is a 82-year-old female who presents to the ER today with complaint of pain and swelling to her face. Patient's face to pain and swelling occurred after she fell in her garden today. Patient states she feels as though she lost her footing while her shoes got stuck and then she fell. Patient also admits to falling in the past. Patient states she fell during a walk which she was going up in on even see that path. The patient also states she has some pain to her left shoulder that also occurred after the fall. Patient admits to taking hydrocodone and gabapentin for pain and states she did take those medications today. Patient denies any other concerns at this time. Related Data Home Medications Medication Instructions Recorded Confirmed cholecalciferol (vitamin D3) 10 400 unit PO ##0 03/05/18 05/19/22 mcg (400 unit) capsule (Vitamin D3) multivitamin (Multiple Vitamins ##0 03/05/18 05/19/22 tablet) celecoxib 200 mg capsule 200 mg PO DAILY PRN 05/19/22 05/19/22 Previous Rx's Medication Instructions Recorded atenolol 100 mg tablet 100 mg PO QDAY #90 tabs 07/23/21 hydrochlorothiazide 25 mg tablet 25 mg PO QDAY #90 tabs 08/03/21 potassium chloride 10 mEq 10 meq PO QDAY #90 caps 09/06/21 capsule,extended release citalopram 20 mg tablet See Rx Instructions .Route 09/09/21 .COMPLEX #90 tabs pantoprazole 40 mg tablet,delayed 40 mg PO QDAY #90 tabs 11/23/21 release (Protonix) gabapentin 300 mg capsule See Rx Instructions .Route 03/16/22 .COMPLEX #180 caps bacitracin 500 unit/gram topical 1 applic topical TID #28 grams 05/19/22 ointment hydrocodone 7.5 mg-acetaminophen 2 tab PO Q4H PRN pain in 07/01/22 325 mg tablet neck/joints #360 tabs Allergies Allergy/AdvReac Type Severity Reaction Status Date / Time tetanus and diphtheria Allergy Severe edema, Verified 05/19/22 14:36 toxoids fever [TETANUS & DIPHTHERIA TOXOIDS] hydroxyzine Allergy Intermediate Tachycardia Verified 05/19/22 14:36 adhesive tape [ADHESIVE TAPE] Allergy Mild REDNESS, Verified 05/19/22 14:36 EDEMA PAPER/SILK TAPE OK codeine [CODEINE] Allergy Mild ITCHING Verified 05/19/22 14:36 iodine [IODINE] Allergy Mild REDNESS, Verified 05/19/22 14:36 HEAT TOPICAL USE Mosquitoes/Fleas Allergy Severe Bad Uncoded 05/19/22 14:36 reaction to these bites. Puffs up Patient History <Cordell Parra PA-C - Last Filed: 07/02/22 19:46> Medical History Cervical stenosis of spinal canal Chronic pain syndrome Chronic renal failure, stage 3a Essential hypertension Fibromyalgia Gastroesophageal reflux disease without esophagitis GERD (gastroesophageal reflux disease) History of migraine headaches Hyperlipidemia (08/04/11) Lumbar stenosis with neurogenic claudication Major depressive disorder (08/04/11) Osteoarthritis PSVT (paroxysmal supraventricular tachycardia) Scoliosis (and kyphoscoliosis), idiopathic Uncomplicated opioid dependence Surgical History S/P cervical spinal fusion Social History Smoking Status: Never smoker Smoking Status: Never smoker Substance Use Type: does not use Exam <Cordell Parra PA-C - Last Filed: 07/02/22 19:46> Narrative Exam Narrative: Patient has a 2.5 cm abrasion to the left cheek area. Patient also has a 2.5 cm bruise to the left eyebrow proximal to the left eye. To bruises carpal shaped dark in color. Patient also had a 1.5 cm abrasion to the proximal left palm of her left hand. Patient has a 1 cm diameter laceration to her right pinky dorsal side area. Both left and right hands have minimal additional erythema and minimal to no swelling. Initial Vital Signs Initial Vital Signs: Vital Signs Temperature 97.8 F 07/02/22 17:15 Pulse Rate 58 L 07/02/22 17:15 Respiratory Rate 18 07/02/22 17:15 Blood Pressure 192/81 H 07/02/22 17:15 Pulse Oximetry 97 07/02/22 17:15 Oxygen Delivery Method 07/02/22 17:15 Chest Chest: normal inspection of the chest Resp Effort & Inspection: normal respiratory effort, able to speak in complete sentences, no audible wheezes and no respiratory distress Auscultation: clear to auscultation bilaterally GI Inspection: normal to inspection Palpation: soft and No tender Percussion: normal to percussion Auscultation: normal bowel sounds and normoactive bowel sounds <Jia Meng DO - Last Filed: 07/04/22 02:30> Initial Vital Signs Initial Vital Signs: Vital Signs Temperature 97.8 F 07/02/22 17:15 Pulse Rate 58 L 07/02/22 17:15 Respiratory Rate 18 07/02/22 17:15 Blood Pressure 192/81 H 07/02/22 17:15 Pulse Oximetry 97 07/02/22 17:15 Oxygen Delivery Method 07/02/22 17:15 Course <Cordell Parra PA-C - Last Filed: 07/02/22 19:46> Orders Ordered: Discontinued Medications Hydrocodone Bitart/Acetaminophen (Hydrocodone/Acet 5/325 Tablet) 1 tab PO NOW ONE Stop: 07/02/22 19:04 Last Admin: 07/02/22 19:46 Dose: 1 tab Documented By: NR Bacitracin (Bacitracin Oint 0.9 Gm Pckt) 1 applic TOP NOW ONE Stop: 07/02/22 19:40 Last Admin: 07/02/22 19:49 Dose: Not Given Documented By: NR Ketorolac Tromethamine (Ketorolac 30 Mg/Ml Vial) 15 mg IM NOW ONE Stop: 07/02/22 19:14 Last Admin: 07/02/22 19:46 Dose: 15 mg Documented By: NR Vital Signs Vital signs: Vital Signs - 8 hr 07/02/22 17:15 Temperature 97.8 F Pulse Rate 58 L Respiratory Rate 18 Blood Pressure 192/81 H Pulse Oximetry 97 Oxygen Delivery Method Room Air <Jia Meng DO - Last Filed: 07/04/22 02:30> Orders Ordered: Discontinued Medications Hydrocodone Bitart/Acetaminophen (Hydrocodone/Acet 5/325 Tablet) 1 tab PO NOW ONE Stop: 07/02/22 19:04 Last Admin: 07/02/22 19:46 Dose: 1 tab Documented By: NR Bacitracin (Bacitracin Oint 0.9 Gm Pckt) 1 applic TOP NOW ONE Stop: 07/02/22 19:40 Last Admin: 07/02/22 19:49 Dose: Not Given Documented By: NR Ketorolac Tromethamine (Ketorolac 30 Mg/Ml Vial) 15 mg IM NOW ONE Stop: 07/02/22 19:14 Last Admin: 07/02/22 19:46 Dose: 15 mg Documented By: NR Vital Signs Vital signs: Vital Signs - 8 hr 07/02/22 17:15 Temperature 97.8 F Pulse Rate 58 L Respiratory Rate 18 Blood Pressure 192/81 H Pulse Oximetry 97 Oxygen Delivery Method Room Air MDM - Fall <Cordell Parra PA-C - Last Filed: 07/02/22 19:46> Lab Data Result diagrams: 07/02/22 17:38 07/02/22 17:38 Labs: Lab Results 07/02/22 07/02/22 Range/Units 17:38 17:38 WBC 7.8 (4.5-11.0) X10^3/uL RBC 4.03 (4.0-5.2) X10^6/uL Hgb 12.0 (12.0-16.0) g/dL Hct 35.3 L (36-46) % MCV 87.5 (80-100) fL MCH 29.7 (26-34) PG MCHC 33.9 (30-36) % RDW 13.6 (11.6-14.8) % Plt Count 288 (150-400) X10^3/uL Neut % (Auto) 66.9 (50-75) % Lymph % (Auto) 19.7 L (25-40) % [place] % (Auto) 9.9 (3-14) % Eos % (Auto) 2.9 (2-4) % Baso % (Auto) 0.6 (0-2) % Neut # (Auto) 5200 (3969-3508) /uL Lymph # (Auto) 1500 (1410-4527) /uL [place] # (Auto) 800 (0-900) /uL Eos # (Auto) 200 (0-450) /uL Baso # (Auto) 100 (0-100) /uL Sodium 135 L (137-145) mmol/L Potassium 4.0 (3.4-5.1) mmol/L Chloride 100 (98-107) mmol/L Carbon Dioxide 25 (22-32) mmol/L BUN 32 H (7-17) mg/dL Creatinine 0.96 (0.52-1.04) mg/dL Estimated GFR 59 L (>60) mL/min BUN/Creatinine Ratio 33.3 H (6-22) Glucose 113 H (80-110) mg/dL Calcium 9.0 (8.4-10.2) mg/dL Total Bilirubin 0.5 (0.2-1.3) mg/dL AST 26 (14-36) IU/L ALT 14 (<35) IU/L Alkaline Phosphatase 57 (38-126) U/L Total Protein 8.4 H (6.3-8.2) g/dL Albumin 4.7 (3.5-5.0) g/dL Globulin 3.7 (1.7-4.1) g/dL Albumin/Globulin Ratio 1.3 (1.0-2.8) Imaging Data CT scan - head: Radiologist's Impression: PROCEDURE:? CT HEAD/BRAIN WO CON ? INDICATIONS:? fall ? TECHNIQUE:? Noncontrast 4.5 mm thick angled axial sections acquired from the foramen magnum to the vertex, with coronal and sagittal reformats.? For radiation dose reduction, the following was used:? automated exposure control, adjustment of mA and/or kV according to patient size.? ? COMPARISON:? None. ? FINDINGS:? Image quality:? Excellent.? ? CSF spaces:? Basal cisterns are patent.? No extra-axial fluid collections.? The ventricles are symmetric in size and shape.? ? Brain:? No intracranial bleeds or masses.? There is cerebral volume loss for age, with resultant ventricular and sulcal prominence.? There are periventricular and deep white matter chronic small vessel ischemic changes.? There is intracranial internal carotid artery atherosclerosis.? ? Skull and face:? Calvarium and visualized facial bones appear intact, without suspicious lesions.? ? There is a moderate-sized left prefrontal/preorbital subscalp hematoma. ? Sinuses:? Visualized sinuses and mastoids are clear.? ? IMPRESSION:? ? 1. No acute intracranial abnormalities. ? 2. Cerebral volume loss and chronic microvascular ischemic changes. ? ? ? Dictated by: Мария Riddle M.D. on 07/02/2022 at 18:31 ? ? Approved by: Мария Riddle M.D. on 07/02/2022 at 18:32 ? Extremity x-ray #1: Radiologist's Impression: PROCEDURE:? CT CERVICAL SPINE WO CON ? INDICATIONS:? fall ? TECHNIQUE:? Noncontrast 3 mm thick sections acquired from the skull base to the T4 level.? Sagittal and coronal reformats were then constructed.? For radiation dose reduction, the following was used:? automated exposure control, adjustment of mA and/or kV according to patient size.? ? COMPARISON:? [facility], CT, CT CERVICAL SPINE WO CON, 08/23/2021, 12:25. ? FINDINGS:? Image quality:? Excellent.? ? Bones:? No fractures or dislocations.? There is grade 1 anterolisthesis of C2 on C3.? There are postsurgical changes with discectomy and anterior fusion at C4-T1.? T2 and C3 may be fused.? There is mild degenerative disc disease at C2-C3.? Multilevel facet arthropathy bilaterally, most pronounced at C2-C3.? Moderate atlantoaxial joint degeneration.? Visualized superior ribs are intact.? ? Soft tissues:? Prevertebral soft tissues are normal in thickness.? No paravertebral hematomas.? No apical pneumothoraces.? Atherosclerotic calcifications at the carotid bifurcations bilaterally.? Calcification of aortic arch. ? ? IMPRESSION:? ? 1. No acute cervical spine fracture.? 2. Degenerative and postsurgical changes in cervical spine.? Dictated by: Мария Riddle M.D. on 07/02/2022 at 18:26 ? ? Approved by: Мария Riddle M.D. on 07/02/2022 at 18:30 ? Extremity x-ray #2: Radiologist's Impression: PROCEDURE:? XR SHOULDER LT MIN 2V ? INDICATIONS:? fall ? TECHNIQUE:? 3 views of the shoulder were acquired.? ? COMPARISON:? None. ? FINDINGS:? ? Bones:? No fractures or dislocations.? No suspicious bony lesions.? Visualized ribs appear intact.? Mild degenerative changes of the acromioclavicular and glenohumeral joints.? Postsurgical changes of lower cervical fusion incompletely evaluated. ? Soft tissues:? Imaged lungs are clear.? Small enthesophytes/hydroxyapatite deposition is noted at the humeral head adjacent to the greater trochanter. ? IMPRESSION:? ? No acute osseous abnormality. ? ? Dictated by: Julio Araiza D.O. on 07/02/2022 at 17:35 ? ? Approved by: Julio Araiza D.O. on 07/02/2022 at 17:37 ? ECG Data Attestation: I personally reviewed and interpreted this ECG as follows: (Normal sinus rhythm) Interpretation: ECG results displayed normal sinus rhythm ECG rhythm also reviewed by Dr. Meng. MDM Narrative Medical decision making narrative: Patient is a 82-year-old female who presented to the ER today with pain and swelling to her face left shoulder and back. Patient states this started after she fell in her garden today. Patient denies loss of consciousness fever chills nausea vomiting GI or concerns associated with this event. Patient also admits to taking hydrocodone for pain but did not more than her prescribed medications today. CT scan of head is confirmed negative x-rays of cervical spine and left shoulder were also negative. Patient denies any concerns history of urinary tract infections or abdominal or flank pain at this time. Blood glucose levels were not unremarkable. Vital signs do not reflect concerns for attention. Vitals ordered hydrocodone and Toradol for pain. The nurse to clean and apply dressing 2 abrasions. <Jia Meng, DO - Last Filed: 07/04/22 02:30> Lab Data Labs: Lab Results 07/02/22 07/02/22 Range/Units 17:38 17:38 WBC 7.8 (4.5-11.0) X10^3/uL RBC 4.03 (4.0-5.2) X10^6/uL Hgb 12.0 (12.0-16.0) g/dL Hct 35.3 L (36-46) % MCV 87.5 (80-100) fL MCH 29.7 (26-34) PG MCHC 33.9 (30-36) % RDW 13.6 (11.6-14.8) % Plt Count 288 (150-400) X10^3/uL Neut % (Auto) 66.9 (50-75) % Lymph % (Auto) 19.7 L (25-40) % [place] % (Auto) 9.9 (3-14) % Eos % (Auto) 2.9 (2-4) % Baso % (Auto) 0.6 (0-2) % Neut # (Auto) 5200 (1447-3442) /uL Lymph # (Auto) 1500 (1502-9921) /uL [place] # (Auto) 800 (0-900) /uL Eos # (Auto) 200 (0-450) /uL Baso # (Auto) 100 (0-100) /uL Sodium 135 L (137-145) mmol/L Potassium 4.0 (3.4-5.1) mmol/L Chloride 100 (98-107) mmol/L Carbon Dioxide 25 (22-32) mmol/L BUN 32 H (7-17) mg/dL Creatinine 0.96 (0.52-1.04) mg/dL Estimated GFR 59 L (>60) mL/min BUN/Creatinine Ratio 33.3 H (6-22) Glucose 113 H (80-110) mg/dL Calcium 9.0 (8.4-10.2) mg/dL Total Bilirubin 0.5 (0.2-1.3) mg/dL AST 26 (14-36) IU/L ALT 14 (<35) IU/L Alkaline Phosphatase 57 (38-126) U/L Total Protein 8.4 H (6.3-8.2) g/dL Albumin 4.7 (3.5-5.0) g/dL Globulin 3.7 (1.7-4.1) g/dL Albumin/Globulin Ratio 1.3 (1.0-2.8) ECG Data Interpretation: ECG results displayed normal sinus rhythm ECG rhythm also reviewed by Dr. Meng. Yusra normal sinus rhythm rate 64 TX interval 156 year S [address] changes no T-wave inversions similar to previous EKG Discharge Plan Departure Patient Disposition: Home Clinical Impression: Fall, Abrasion, Fall as cause of accidental injury at home as place of occurrence Instructions: How to Prevent Falls, DI for Abrasion Activity Restrictions/Additional Instructions: *You have been diagnosed with pain to face, abrasions to face & extremities and left shoulder pain secondary to fall. *What to do: *Please continue to take your regular medications as directed. *Please follow up with your primary care provider in 2-3 days, call for an appointment. Let them know you were seen in the Emergency Department and that we ask that you be seen in follow up. We will electronically transmit a record of today's note if your PCP is in our system *If you do not have a primary care provider please contact the [facility] Resource line at [phone]. They will ask some questions about your medical history and help get you set up with a doctor in the community. *Return to Emergency Department if you should have any new, worsening or concerning symptoms, such as [fever greater than 101 F, shaking chills, worsening pain, persistent vomiting or other bothersome symptoms] Prescriptions: No Action multivitamin [Multiple Vitamins] 1 EACH tablet Qty: 0 cholecalciferol (vitamin D3) [Vitamin D3] 400 UNIT capsule 400 unit PO Qty: 0 atenolol 100 mg tablet 100 mg PO QDAY Qty: 90 3RF hydrochlorothiazide 25 mg tablet 25 mg PO QDAY Qty: 90 3RF potassium chloride 10 mEq capsule, extended release 10 meq PO QDAY Qty: 90 3RF citalopram 20 mg tablet See Rx Instructions .ROUTE .COMPLEX Qty: 90 3RF Dose Instruction: TAKE 1 TABLET BY MOUTH EVERY DAY Rx Instructions: TAKE 1 TABLET BY MOUTH EVERY DAY pantoprazole [Protonix] 40 mg tablet,delayed release (DR/EC) 40 mg PO QDAY Qty: 90 3RF gabapentin 300 mg capsule See Rx Instructions .ROUTE .COMPLEX Qty: 180 1RF Dose Instruction: TAKE 1 CAPSULE BY MOUTH THREE TIMES DAILY Rx Instructions: TAKE 1 CAPSULE BY MOUTH THREE TIMES DAILY hydrocodone-acetaminophen 7.5-325 mg tablet 2 tab PO Q4H MDD 90 mg hydrocodone PRN (Reason: pain in neck/joints) Qty: 360 0RF celecoxib 200 mg capsule 200 mg PO DAILY PRN bacitracin 500 unit/gram ointment 1 applic topical TID Qty: 28 3RF Referrals: Jude Baeza MD [Primary Care Provider] - Visit Report Forms: Patient Portal/API <Jia Meng DO - Last Filed: 07/04/22 02:30> Cosign ED Attending Petrature Attestation: I was immediately available in the department for consultation. Documentation has been reviewed. I agree with assessment and plan.
[2022-07-02] MEDS: KETOROLAC 30 MG/ML VIAL 15 MG IM (19:46)
[2022-07-02] MEDS: HYDROCODONE/ACET 5/325 TABLET 1 TAB PO (19:46)
[2022-07-02 20:07] VITALS: BP 191/88; PULSE 66; RESP 18; O2SAT 97
== END 2022-07-02 20:09 | disposition home or self-care (01) ==
PROVIDERS: Emergency Medicine; Emergency Provider Physician Assistant; Family Provider Internal Medicine; PCP Internal Medicine
DX: S00.81XA Abrasion of other part of head, initial encounter (principal); S00.12XA Contusion of left eyelid and periocular area, initial encounter; S60.512A Abrasion of left hand, initial encounter; R07.9 Chest pain, unspecified; W19.XXXA Unspecified fall, initial encounter
CPT/HCPCS: 70450; 72125; 73030; 80053; 85025; 93005; 96372; 99284; J1885

== ENCOUNTER 2023-09-16 21:15 | Emergency (ER) | payer OTHER, SELFPAY ==
[2023-09-16] VITALS (8 sets, daily range): BP systolic 190–213; BP diastolic 78–100; PULSE 62–77; RESP 18; TEMP 36.6; O2SAT 95–98; BMI 24.0
--- NOTE | 2023-09-16 21:20 | ED_ITS ---
HPI - Abdominal Pain General Chief Complaint: Abdominal Pain Stated Complaint: abpain Time Seen by Provider: 09/16/23 21:20 Source: patient, EMS, RN notes reviewed and old records reviewed Mode of arrival: EMS Limitations: no limitations History of Present Illness HPI narrative: 83-year-old female with history of chronic pain, chronic kidney disease, GERD, paroxysmal SVT, hypertension with complaint of sudden onset of right upper quadrant abdominal pain starting about 4:30 p.m. today. Patient states she was lying on her bed when it started. Nothing seems to make it worse or better. She denies fevers. She did have some nausea and dry heaves and route with EMS. Denies chest pain or shortness of breath, no passing out. She states she is had normal bowel movements with no black or bloody stool. She denies dysuria, urgency or frequency. Patient denies any back or flank pain. She has not had similar symptoms in the past. She states she does think it is her gallbladder. Patient states she is not had her regular narcotic pain medication today but has had her other regular medications. She denies prior cholecystectomy, states she is had prior back surgery but no abdominal surgeries. No tobacco, alcohol or illicit. Dr. Baeza is her primary care physician. Related Data Home Medications Medication Instructions Recorded Confirmed cholecalciferol (vitamin D3) 10 400 unit PO ##0 03/05/18 04/07/23 mcg (400 unit) capsule (Vitamin D3) multivitamin (Multiple Vitamins ##0 03/05/18 04/07/23 tablet) Previous Rx's Medication Instructions Recorded hydrochlorothiazide 25 mg tablet 25 mg PO QDAY #90 tabs 09/02/22 citalopram 20 mg tablet 20 mg PO DAILY #90 tabs 10/10/22 atenolol 100 mg tablet 100 mg PO QDAY #90 tabs 11/08/22 potassium chloride 10 mEq 10 meq PO QDAY #90 caps 11/14/22 capsule,extended release pantoprazole 40 mg tablet,delayed 40 mg PO QDAY #90 tabs 12/05/22 release (Protonix) hydrocodone 7.5 mg-acetaminophen 2 tab PO Q4H PRN pain in 08/21/23 325 mg tablet neck/joints #360 tabs gabapentin 300 mg capsule 300 mg PO TID #180 caps 09/15/23 Allergies Allergy/AdvReac Type Severity Reaction Status Date / Time tetanus and diphtheria Allergy Severe edema, Verified 09/16/23 21:19 toxoids fever [TETANUS & DIPHTHERIA TOXOIDS] hydroxyzine Allergy Intermediate Tachycardia Verified 09/16/23 21:19 adhesive tape [ADHESIVE TAPE] Allergy Mild REDNESS, Verified 09/16/23 21:19 EDEMA PAPER/SILK TAPE OK codeine [CODEINE] Allergy Mild ITCHING Verified 09/16/23 21:19 iodine [IODINE] Allergy Mild REDNESS, Verified 09/16/23 21:19 HEAT TOPICAL USE Mosquitoes/Fleas Allergy Severe Bad Uncoded 04/07/23 14:46 reaction to these bites. Puffs up Review of Systems Review of Systems ROS Unobtainable: All systems reviewed & are unremarkable except as noted in HPI and below Patient History Medical History Uncomplicated opioid dependence Chronic renal failure, stage 3a Lumbar stenosis with neurogenic claudication Scoliosis (and kyphoscoliosis), idiopathic History of migraine headaches Gastroesophageal reflux disease without esophagitis Essential hypertension Hyperlipidemia (08/04/11) Major depressive disorder (08/04/11) PSVT (paroxysmal supraventricular tachycardia) Fibromyalgia GERD (gastroesophageal reflux disease) Chronic pain syndrome Osteoarthritis Cervical stenosis of spinal canal Surgical History S/P cervical spinal fusion Social History Smoking Status: Never smoker Smoking Status: Never smoker Substance Use Type: does not use Exam Narrative Exam Narrative: GENERAL: Alert and oriented x three, elderly female in moderate distress. HEENT: Head normocephalic, atraumatic, EOMI, pupils reactive, face symmetric, moist mucous membranes NECK: Supple, full range of motion CARDIOVASCULAR: Regular rate and rhythm without murmurs, rubs or gallops. RESPIRATORY: Breath sounds equal bilaterally, no wheezes rales or rhonchi. ABDOMEN: Soft, patient is tender particularly left lower quadrant but states it actually radiates to her right upper abdomen, she is somewhat tender on right upper quadrant less so in the right lower. Normoactive bowel sounds all 4 quadrants. No guarding or rebound, rigidity, no mass, no pulsatile mass or bruit. : No CVA tenderness EXTREMITIES: Normal range of motion, no clubbing or edema. Neurovascularly intact. 2+ pulses bilateral lower extremities. NEUROLOGICAL: Cranial nerves II through XII grossly intact. Moving all extremities SKIN: Warm, dry, no petechiae, no rashes or lesions. Initial Vital Signs Initial Vital Signs: Vital Signs Temperature 97.8 F 09/16/23 21:19 Pulse Rate 62 09/16/23 21:19 Respiratory Rate 18 09/16/23 21:19 Blood Pressure 207/95 H 09/16/23 21:19 Pulse Oximetry 98 09/16/23 21:19 Oxygen Delivery Method Room Air 09/16/23 21:19 Course Orders Ordered: Discontinued Medications Aspirin (Aspirin 81 Mg Chew Tab) 324 mg PO NOW ONE Stop: 09/17/23 00:13 Last Admin: 09/17/23 00:24 Dose: 324 mg Documented By: DREW Atorvastatin Calcium (Atorvastatin 20 Mg Tablet) 80 mg PO NOW ONE Stop: 09/17/23 02:47 Last Admin: 09/17/23 03:23 Dose: 80 mg Documented By: LISETTE Heparin Sodium (Porcine) (Heparin 5,000 Unit/Ml Vial) 4,000 unit IV NOW ONE Stop: 09/17/23 02:42 Last Admin: 09/17/23 02:54 Dose: 4,000 unit Documented By: LISETTE Hydromorphone HCl (Hydromorphone 1 Mg Inj) 1 mg IV NOW ONE Stop: 09/17/23 00:34 Last Admin: 09/17/23 00:39 Dose: 1 mg Documented By: DREW Hydromorphone HCl (Hydromorphone 0.5 Mg Inj) 0.5 mg IV NOW ONE Stop: 09/17/23 02:06 Last Admin: 09/17/23 02:11 Dose: 0.5 mg Documented By: LISETTE Hydromorphone HCl (Hydromorphone 0.5 Mg Inj) 0.5 mg IV NOW ONE Stop: 09/17/23 04:27 Last Admin: 09/17/23 04:29 Dose: 0.5 mg Documented By: LISETTE Hydromorphone HCl (Hydromorphone 0.5 Mg Inj) 0.5 mg IV Q2H PRN PRN Reason: Pain, Moderate (4-6) Hydromorphone HCl (Hydromorphone 1 Mg Inj) 1 mg IV NOW ONE Stop: 09/17/23 05:07 Last Admin: 09/17/23 05:14 Dose: 1 mg Documented By: LISETTE Hydromorphone HCl (Hydromorphone 1 Mg Inj) 1 mg IV NOW ONE Stop: 09/17/23 07:32 Last Admin: 09/17/23 07:36 Dose: 1 mg Documented By: KIRBY Sodium Chloride (Normal Saline 0.9%) 1,000 mls @ 1,000 mls/hr IV BOLUS ONE Stop: 09/16/23 22:28 Last Infusion: 09/16/23 23:19 Dose: Infused Documented By: Admin: 09/16/23 22:08 Dose: 1,000 mls/hr Documented By: DREW Heparin Sodium/Dextrose (Heparin Drip) 25,000 unit in 500 mls @ 17.255 mls/hr IV CONT MECCA; Protocol Last Admin: 09/17/23 03:47 Dose: 12 units/kg/hr, 17.255 mls/hr Documented By: LISETTE Co-signed By: RUDOLPH Nitroglycerin (Nitroglycerin) 50 mg in 250 mls @ 1.5 mls/hr IV TITRATE MECCA; Protocol Last Titration: 09/17/23 05:31 Dose: 0 mcg/min, 0 mls/hr Documented By: Admin: 09/17/23 03:10 Dose: 5 mcg/min, 1.5 mls/hr Documented By: LISETTE DILTIAZEM (Diltiazem 125 Mg/125 Ml-D5w) 125 mg in 125 mls @ 5 mls/hr IV TITRATE MECCA; Protocol Last Titration: 09/17/23 07:59 Dose: 10 mg/hr, 10 mls/hr Documented By: Admin: 09/17/23 06:55 Dose: 5 mg/hr, 5 mls/hr Documented By: LISETTE Metoprolol Tartrate (Metoprolol Tartrate 5 Mg/5 Ml Inj) 5 mg IV Q5M MECCA Stop: 09/17/23 05:56 Last Admin: 09/17/23 06:09 Dose: 5 mg Documented By: Admin: 09/17/23 05:48 Dose: 5 mg Documented By: Admin: 09/17/23 05:42 Dose: 5 mg Documented By: LISETTE Morphine Sulfate (Morphine 4 Mg/Ml Inj) 4 mg IV NOW ONE Stop: 09/16/23 21:30 Last Admin: 09/16/23 21:52 Dose: 4 mg Documented By: DREW Morphine Sulfate (Morphine 4 Mg/Ml Inj) 4 mg IV NOW ONE Stop: 09/16/23 23:01 Last Admin: 09/16/23 23:08 Dose: 4 mg Documented By: DREW Nitroglycerin (Nitroglycerin 0.4 Mg Sl Tab) 0.4 mg SL [id number] PRN PRN Reason: Chest Pain Last Admin: 09/17/23 00:25 Dose: 0.4 mg Documented By: DREW Ondansetron HCl (Ondansetron 4 Mg/2 Ml Inj) 4 mg IV NOW ONE Stop: 09/16/23 21:30 Last Admin: 09/16/23 21:52 Dose: 4 mg Documented By: DREW Vital Signs Vital signs: Vital Signs - 8 hr 09/16/23 22:08 09/16/23 22:09 09/16/23 22:09 Temperature Pulse Rate 75 67 Respiratory Rate Blood Pressure 194/85 H Pulse Oximetry 95 Oxygen Delivery Method 09/16/23 22:30 09/16/23 22:30 09/16/23 23:00 Temperature Pulse Rate 77 77 Respiratory Rate Blood Pressure 190/100 H Pulse Oximetry 95 97 Oxygen Delivery Method 09/16/23 23:00 09/16/23 23:30 09/16/23 23:31 Temperature Pulse Rate 69 69 Respiratory Rate Blood Pressure 213/94 H Pulse Oximetry 96 97 Oxygen Delivery Method 09/16/23 23:31 09/17/23 00:00 09/17/23 00:01 Temperature Pulse Rate 74 73 Respiratory Rate Blood Pressure 190/78 H Pulse Oximetry 96 97 Oxygen Delivery Method 09/17/23 00:01 09/17/23 00:30 09/17/23 00:31 Temperature Pulse Rate 85 84 Respiratory Rate Blood Pressure 176/77 H Pulse Oximetry 95 96 Oxygen Delivery Method 09/17/23 00:31 09/17/23 01:00 09/17/23 01:00 Temperature Pulse Rate 72 Respiratory Rate Blood Pressure 114/59 L 157/69 H Pulse Oximetry 94 Oxygen Delivery Method 09/17/23 01:33 09/17/23 01:34 09/17/23 01:34 Temperature Pulse Rate 89 89 Respiratory Rate Blood Pressure 188/78 H Pulse Oximetry 96 99 Oxygen Delivery Method 09/17/23 02:00 09/17/23 02:16 09/17/23 02:16 Temperature Pulse Rate 77 79 Respiratory Rate Blood Pressure 163/78 H Pulse Oximetry 95 96 Oxygen Delivery Method 09/17/23 02:30 09/17/23 02:30 09/17/23 03:00 Temperature Pulse Rate 79 79 Respiratory Rate 21 Blood Pressure 172/74 H Pulse Oximetry 95 96 Oxygen Delivery Method 09/17/23 03:05 09/17/23 03:05 09/17/23 03:10 Temperature Pulse Rate 79 80 Respiratory Rate 16 Blood Pressure 150/70 H 150/70 H Pulse Oximetry 95 Oxygen Delivery Method 09/17/23 03:30 09/17/23 03:30 09/17/23 03:40 Temperature Pulse Rate 77 81 Respiratory Rate 9 L 23 Blood Pressure 166/71 H Pulse Oximetry 95 92 Oxygen Delivery Method 09/17/23 03:40 09/17/23 04:05 09/17/23 04:06 Temperature Pulse Rate 81 79 Respiratory Rate 14 Blood Pressure 162/78 H Pulse Oximetry 92 94 Oxygen Delivery Method Room Air 09/17/23 04:06 09/17/23 04:10 09/17/23 04:10 Temperature Pulse Rate 76 Respiratory Rate 12 Blood Pressure 175/80 H 173/73 H Pulse Oximetry 95 Oxygen Delivery Method 09/17/23 04:20 09/17/23 04:20 09/17/23 04:30 Temperature 99.5 F Pulse Rate 79 Respiratory Rate 12 Blood Pressure 155/80 H 162/91 H Pulse Oximetry 95 Oxygen Delivery Method 09/17/23 04:30 09/17/23 04:41 09/17/23 04:41 Temperature Pulse Rate 82 77 Respiratory Rate 19 12 Blood Pressure 153/77 H Pulse Oximetry 96 93 Oxygen Delivery Method 09/17/23 04:50 09/17/23 04:50 09/17/23 05:00 Temperature Pulse Rate 77 Respiratory Rate 13 Blood Pressure 155/74 H 156/76 H Pulse Oximetry 93 Oxygen Delivery Method 09/17/23 05:00 09/17/23 05:10 09/17/23 05:10 Temperature Pulse Rate 79 80 Respiratory Rate 17 17 Blood Pressure 164/74 H Pulse Oximetry 93 91 Oxygen Delivery Method 09/17/23 05:20 09/17/23 05:20 Temperature Pulse Rate 123 H Respiratory Rate 13 Blood Pressure 153/73 H Pulse Oximetry 92 Oxygen Delivery Method MDM - Abdominal Pain Lab Data 09/16/23 21:29 09/16/23 21:29 Labs: Lab Results 09/16/23 09/16/23 09/16/23 Range/Units 21:29 23:20 23:30 WBC 12.8 H (4.5-11.0) X10^3/uL RBC 4.27 (4.0-5.2) X10^6/uL Hgb 13.5 (12.0-16.0) g/dL Hct 40.4 (36-46) % MCV 94.7 (80-100) fL MCH 31.7 (26-34) PG MCHC 33.5 (30-36) % RDW 13.6 (11.6-14.8) % Plt Count 224 (150-400) X10^3/uL Neut % (Auto) 85.6 H (50-75) % Lymph % (Auto) 7.9 L (25-40) % [place] % (Auto) 5.8 (3-14) % Eos % (Auto) 0.3 L (2-4) % Baso % (Auto) 0.4 (0-2) % Neut # (Auto) 07736 H (5853-8159) /uL Lymph # (Auto) 1000 L (2710-2500) /uL [place] # (Auto) 700 (0-900) /uL Eos # (Auto) 0 (0-450) /uL Baso # (Auto) 0 (0-100) /uL APTT 29 (26-36) SECONDS Sodium 135 L (137-145) mmol/L Potassium 3.3 L (3.4-5.1) mmol/L Chloride 94 L (98-107) mmol/L Carbon Dioxide 27 (22-32) mmol/L BUN 30 H (7-17) mg/dL Creatinine 0.80 (0.52-1.04) mg/dL Estimated GFR > 60 (>60) mL/min BUN/Creatinine Ratio 37.5 H (6-22) Glucose 149 H (80-110) mg/dL Lactate (0.7-2.1) mmol/L Calcium 9.8 (8.4-10.2) mg/dL Total Bilirubin 0.6 (0.2-1.3) mg/dL AST 37 H (14-36) IU/L ALT 23 (<35) IU/L Alkaline Phosphatase 64 (38-126) U/L Total Creatine Kinase 69 (30-135) U/L Troponin I 0.014 0.094 H (0.01-0.034) ng/mL NT-Pro-B Natriuret Pep 1790 H (<450) pg/mL Total Protein 9.1 H (6.3-8.2) g/dL Albumin 4.8 (3.5-5.0) g/dL Globulin 4.3 H (1.7-4.1) g/dL Albumin/Globulin Ratio 1.1 (1.0-2.8) Lipase 64 (23-300) U/L Urine RBC None seen (0-5/HPF) Urine WBC None seen (0-5/HPF) Ur Squamous Epith Cells None seen (0-5/HPF) Urine Bacteria None seen (None) Ur Culture Indicated? Cult not indicated 09/17/23 09/17/23 Range/Units 01:48 03:05 WBC (4.5-11.0) X10^3/uL RBC (4.0-5.2) X10^6/uL Hgb (12.0-16.0) g/dL Hct (36-46) % MCV (80-100) fL MCH (26-34) PG MCHC (30-36) % RDW (11.6-14.8) % Plt Count (150-400) X10^3/uL Neut % (Auto) (50-75) % Lymph % (Auto) (25-40) % [place] % (Auto) (3-14) % Eos % (Auto) (2-4) % Baso % (Auto) (0-2) % Neut # (Auto) (5941-7625) /uL Lymph # (Auto) (0612-3096) /uL [place] # (Auto) (0-900) /uL Eos # (Auto) (0-450) /uL Baso # (Auto) (0-100) /uL APTT (26-36) SECONDS Sodium (137-145) mmol/L Potassium (3.4-5.1) mmol/L Chloride (98-107) mmol/L Carbon Dioxide (22-32) mmol/L BUN (7-17) mg/dL Creatinine (0.52-1.04) mg/dL Estimated GFR (>60) mL/min BUN/Creatinine Ratio (6-22) Glucose (80-110) mg/dL Lactate 1.3 (0.7-2.1) mmol/L Calcium (8.4-10.2) mg/dL Total Bilirubin (0.2-1.3) mg/dL AST (14-36) IU/L ALT (<35) IU/L Alkaline Phosphatase (38-126) U/L Total Creatine Kinase (30-135) U/L Troponin I 0.210 H* (0.01-0.034) ng/mL NT-Pro-B Natriuret Pep (<450) pg/mL Total Protein (6.3-8.2) g/dL Albumin (3.5-5.0) g/dL Globulin (1.7-4.1) g/dL Albumin/Globulin Ratio (1.0-2.8) Lipase (23-300) U/L Urine RBC (0-5/HPF) Urine WBC (0-5/HPF) Ur Squamous Epith Cells (0-5/HPF) Urine Bacteria (None) Ur Culture Indicated? Point of care testing: Urine Dip Bedside Urine Glucose Negative Bedside Urine Bilirubin - Negative Bedside Urine Ketone +/- 5 Urine Specific Clubb 1.010 Bedside Urine Occult Blood - Negative Bedside Urine pH 6.0 Bedside Urine Protein - Negative Bedside Urine Urobilinogen - Negative Bedside Urine Nitrite - Negative Bedside Urine Leukocytes +/- [address] scan - abdomen/pelvis: Radiologist's Impression: [place] [address] CT Scan Report Signed Patient: Liberty Dixon MR#: [id number] : 1940 Acct:[id number] Age/Sex: 83 / F Date of Service: 09/16/23 Loc: ED Accession Number: [id number] Procedure: CT abdomen pelvis w con Ordering Provider: Lennie Velez D.O. PROCEDURE: CT ABDOMEN PELVIS W CON INDICATIONS: Sudden onset RUQ pain. TECHNIQUE: After the administration of intravenous contrast, axial sections acquired from the lung bases to the pubic symphysis. Coronal and sagittal reformats were performed. For radiation dose reduction, the following was used: automated exposure control, adjustment of mA and/or kV according to patient size. COMPARISON: None. FINDINGS: Image quality: Excellent. Lung bases: Unremarkable. Heart: No significant findings. ABDOMEN: Liver: Unremarkable. Gallbladder: Unremarkable. Biliary ducts: Unremarkable. Pancreas: Unremarkable. Spleen: Unremarkable. Adrenal Glands: Unremarkable. Kidneys and Ureters: Unremarkable. Stomach and Bowel: Stomach, small bowel loops, and colon are unremarkable. Peritoneum: No abnormal intraperitoneal fluid. No free air. Within the abdomen and pelvis there are areas of small bowel fluid filling without distension, a nonspecific CT appearance that can be potentially a manifestation of mild enteritis. Ventral Wall: No hernias. Abdominal Nodes: No retroperitoneal or mesenteric adenopathy by size criteria. Vessels: Aorta and inferior vena cava are normal in size. PELVIS: Pelvic Organs: Unremarkable. Bladder: Unremarkable. Pelvic Nodes: No enlarged lymph nodes. Miscellaneous: No hernias are seen. Bones: Unremarkable. IMPRESSION: In the area of current clinical concern, right upper quadrant, no definite acute disease is found. Please note that noncalcified gallstones will not be accurately detected by CT scanning. Therefore follow-up limited right upper quadrant ultrasound may become necessary. As noted above there are several areas within the abdomen and pelvis with small-bowel loops that are fluid filled but not distended. Mild enteritis can produce such an appearance. Dictated by: Douglas Jimenez M.D. on 09/16/2023 at 22:37 Approved by: Douglas Jimenez M.D. on 09/16/2023 at 22:41 CTA chest/abd/pelvis: Radiologist's Impression: [place] [address] CT Scan Report Signed Patient: Liberty Dixon MR#: [id number] : 1940 Acct:[id number] Age/Sex: 83 / F Date of Service: 09/17/23 Loc: ED Accession Number: [id number] Procedure: CT angio chest abdomen pelvis Ordering Provider: Lennie Velez D.O. PROCEDURE: CT ANGIO CHEST ABDOMEN PELVIS INDICATIONS: Abdominal pain, +troponin, hypertension. TECHNIQUE: Precontrast 5 mm thick sections acquired from the lung apices to the iliac crests. After the administration of intravenous contrast, 2.5 mm thick sections again acquired from the lung apices to the iliac crests. Maximum intensity projection (MIP) oblique sagittal and coronal reformats were then acquired. For radiation dose reduction, the following was used: automated exposure control. COMPARISON: None. FINDINGS: Image quality: Excellent. AORTA: Intramural hematoma: Absent Maximum hematoma thickness: Not applicable Focal contrast enhancement: Intramural blood pool (< 2 mm neck or imperceptible communication with aortic lumen): Absent . Ulcer-like projection (broad communication with aortic lumen > 3 mm): Absent . Dissection: Absent [place] classification: Not applicable Maximum aortic diameter: Normal caliber Periaortic hematoma: Absent . CHEST: Lungs and pleura: No acute airspace opacities. No pleural effusions or pneumothorax. Central and peripheral airways are patent and normal in caliber. Mediastinum: Heart size is normal. No pericardial effusion. No mediastinal or hilar adenopathy by size criteria. Central pulmonary arteries are normal in size. Esophagus is normal in caliber. No hiatal hernias. Bones and chest wall: No axillary adenopathy by size criteria. Thyroid gland appears normal where well seen . No suspicious bony lesions. No vertebral body compression fractures. ABDOMEN: Vasculature: Celiac trunk and mesenteric arteries are patent. Renal arteries are also patent. Solid organs: Liver is normal in size and enhancement. Gallbladder is free of inflammation or calcified gallstone . Biliary system is non dilated. Pancreas enhances normally. Spleen is normal in size and enhancement. No adrenal nodules. Both kidneys are normal in size and enhancement, without hydronephrosis. Peritoneum and bowel: No free fluid or air. Bowel loops are normal in caliber and wall thickness. Nodes and vessels: No retroperitoneal or mesenteric adenopathy by size criteria. Inferior vena cava is normal in morphology. Miscellaneous: No ventral hernias. PELVIS: Genitourinary: Bladder wall thickness is normal. Miscellaneous: No inguinal hernias or adenopathy. No ventral hernias. Bones: No suspicious bony lesions. No vertebral body compression fractures. IMPRESSION: Source of current symptoms is not found. No sign of aortic dissection, rupture, or aneurysm. Atherosclerotic calcific plaquing involving the aorta and its main tributaries is relatively prominent in this patient, but currently no arterial occlusion is found. Dictated by: Douglas Jimenez M.D. on 09/17/2023 at 2:09 Approved by: Douglas Jimenez M.D. on 09/17/2023 at 2:13 ECG Data Attestation: I personally reviewed and interpreted this ECG as follows: Interpretation: Sinus rhythm nonspecific ST change. Rate of 66 AR 160, QRS 84 QTC 425. Patient has no priors for comparison. EKG sinus rhythm rate of 71 AR 164 QRS [address] QTC [address] No acute ST elevation depression noted patient does not have nonspecific EKGs on 2nd. EKG3. Sinus rhythm rate of 70 6p are 158 QRS is 78 QTC 481. No acute ST elevation depression appreciated. Patient's EKG does not show any clear dynamic changes from 2nd to 3rd. EKG 4: AFib with RVR rate of 125 QRS is 76 QTC [address]. No acute ST elevation appreciated patient does have depression in V4-V6. MDM Narrative Medical decision making narrative: 83-year-old female who presents with complaint of fairly abrupt onset of abdominal pain this evening had some dry heaving here in the department, hypotensive, no tachycardia fever. Patient is tender sort of generalized in her abdomen she seems to be most tender in left lower quadrant states it actually radiates up to the right upper quadrant. She states most of her pain is localized there. CT abdomen pelvis as her abdominal exam seems more generalized pain, labs, EKG showed nonspecific change, repeat does not show change but no new ST elevation or depression. CBC shows white count of 12.8, leftward shift normal hemoglobin and platelet. Sodium 135 potassium 3.3 chloride 94, BUN 30 patient does tend to run elevated, normal creatinine of 0.8, CO2 is 27 with a glucose of 149 AST is 37 bilirubin is normal at 0.6 ALT is 23 alk-phos is normal at 64 with negative lipase. Troponin was 0.041, repeat troponin as patient has not clear cause for abdomianl pain is trending upward in indeterminant range. poc urine shows leuks, microscopic is negative. CT abd/pelvis shows shows no acute change, nonspecific appearance with areas of small bowel fluid feeling without distention could represent mild enteritis. Patient received pain medications, antiemetics on recheck. Patient states pain improved but is still present, was given additional dose. Blood pressures been somewhat up and down up to 200 systolic but back down 177 on recheck for her saw systolic. Patient denied any chest pain or pressure but does have some abdominal pain could be referred she is 83-year-old female. Patient and I reviewed her findings. Her EKG her labs so far will give aspirin, nitro, blood pressure is 177 currently on repeat physical exam she still denies any chest pain or pressure shortness of breath states more abdomen on palpation she indicates it is more her lower abdomen. We will repeat imaging with CT angio. BNP was added on 1700 no priors for comparison, patient is not hypoxic, CT angio does not show any pulmonary edema, aorta shows no acute changes, no pericardial effusion, no obvious pulmonary emboli are appreciated, patient does not have any aortic dissection, rupture aneurysm there is atherosclerotic calcific plaquing of the aorta and its major tributaries relatively prominent but no arterial occlusion is found. Patient did not have any improvement with nitro she is somewhat resistant to receiving it. She did have some improvement with the initial morphine but was given additional dose of Dilaudid which was much more helpful.' Discussed with Cardiology, Dr. Pittman, recommends continue to trend troponins if flattening then less suspicious but if trending upwards would recommend treating as NSTEMI, heparin, asa, nitro Discussed findings and recommendations for from cardiology. Patient is open to transfer and interventions. Troponin trending upwards and now positive on set at 0.12 was 0.094 on the prior in 0.014 prior to that. Patient states does not have any discomfort in her chest but has epigastric pain radiating down into her belly. CT angio was obtained does not show aneurysm, dissection, does not show any obvious changes that are elsewhere, no obvious pulmonary emboli are appreciated pericardial effusion. We will treat as NSTEMI. Heparin was initiated, aspirin had already been received. Statin, we will try nitro drip although was not helpful earlier sublingual and patient blood pressure may not tolerate. [facility] patient, contacted [facility] and Dr. Jeanne Alvarenga gave authorization for transfer to [facility]. Patient accepted at , Dr. Manley accepts for transfer. Discussed with patient she is reluctant to transfer but discussed she needs specialty care that we do not have available here. She is concerned she is primary caregiver for her . She does have a daughter coming. After further discussion patient is agreeable to transfer. Patient continues to have significant pain and seems increased after nitro gtt. Lactate was repeated as pain has been mostly abdominal, negative at 1.3 making ischemic gut much less likely. Patient complains of abdominal pain but is only mild to moderately tender on abdomen. Patient flipped into atrial fibrillation with RVR. Rate of 125 QRS 76 QTC 493. Patient does appear to have some depression in lateral lead. No acute elevation. Patient is currently on heparin. Re-contacted Dr. Santoyo at . Updated on change with rhythm, now in Afib with rvr. ST depression lateral leads. Persistent pain. Lactate obtained is 1.3 at 0305 draw after persistent pain for 6+ hours making ischemic gut unlikely. She agrees with holding nitro gtt at this time. Recommends metoprolol IV first line to see if this improves rate control for beta blockade. If in adequate can add diltiazem drip. Does not require change in bed assignment currently but asks for recontact if hypotensive or other changes. Critical Care Time Critical Care Time Critical Care Time: Yes Total Critical Care Time: 55 Attestation: The high probability of a clinically significant, sudden or life threatening deterioration of the [cardiac, pulm] system(s) required my full and direct attention, intervention and personal management. The aggregate critical care time was [45] minutes. This time is in addition to time spent performing reported procedures but includes the following: [x] Data Review and interpretation [x] Patient assessment and monitoring of vital signs [x] Documentation [x] Medication orders and management Discharge Plan Departure Patient Disposition: [facility] Clinical Impression: Non-ST elevation [place] (NSTEMI) Prescriptions: No Action multivitamin [Multiple Vitamins] 1 EACH tablet Qty: 0 cholecalciferol (vitamin D3) [Vitamin D3] 400 UNIT capsule 400 unit PO Qty: 0 hydrochlorothiazide 25 mg tablet 25 mg PO QDAY Qty: 90 3RF citalopram 20 mg tablet 20 mg PO DAILY Qty: 90 3RF atenolol 100 mg tablet 100 mg PO QDAY Qty: 90 3RF potassium chloride 10 mEq capsule, extended release 10 meq PO QDAY Qty: 90 3RF pantoprazole [Protonix] 40 mg tablet,delayed release (DR/EC) 40 mg PO QDAY Qty: 90 3RF hydrocodone-acetaminophen 7.5-325 mg tablet 2 tab PO Q4H MDD 90 mg hydrocodone PRN (Reason: pain in neck/joints) Qty: 360 0RF gabapentin 300 mg capsule 300 mg PO TID Qty: 180 3RF Referrals: Jude Baeza MD [Primary Care Provider] -
--- NOTE | 2023-09-16 21:29 | DI.CT.S_ITS ---
PROCEDURE: CT ABDOMEN PELVIS W CON INDICATIONS: Sudden onset RUQ pain. TECHNIQUE: After the administration of intravenous contrast, axial sections acquired from the lung bases to the pubic symphysis. Coronal and sagittal reformats were performed. For radiation dose reduction, the following was used: automated exposure control, adjustment of mA and/or kV according to patient size. COMPARISON: None. FINDINGS: Image quality: Excellent. Lung bases: Unremarkable. Heart: No significant findings. ABDOMEN: Liver: Unremarkable. Gallbladder: Unremarkable. Biliary ducts: Unremarkable. Pancreas: Unremarkable. Spleen: Unremarkable. Adrenal Glands: Unremarkable. Kidneys and Ureters: Unremarkable. Stomach and Bowel: Stomach, small bowel loops, and colon are unremarkable. Peritoneum: No abnormal intraperitoneal fluid. No free air. Within the abdomen and pelvis there are areas of small bowel fluid filling without distension, a nonspecific CT appearance that can be potentially a manifestation of mild enteritis. Ventral Wall: No hernias. Abdominal Nodes: No retroperitoneal or mesenteric adenopathy by size criteria. Vessels: Aorta and inferior vena cava are normal in size. PELVIS: Pelvic Organs: Unremarkable. Bladder: Unremarkable. Pelvic Nodes: No enlarged lymph nodes. Miscellaneous: No hernias are seen. Bones: Unremarkable. IMPRESSION: In the area of current clinical concern, right upper quadrant, no definite acute disease is found. Please note that noncalcified gallstones will not be accurately detected by CT scanning. Therefore follow-up limited right upper quadrant ultrasound may become necessary. As noted above there are several areas within the abdomen and pelvis with small-bowel loops that are fluid filled but not distended. Mild enteritis can produce such an appearance. Dictated by: Douglas Jimenez M.D. on 09/16/2023 at 22:37 Approved by: Douglas Jimenez M.D. on 09/16/2023 at 22:41
[2023-09-16 21:46] LABS: Add Manual Diff / Slide Review NO; Basophils Absolute Auto 0 /uL (0-100); Basophils Percent Auto 0.4 % (0-2); Eosinophils Absolute Auto 0 /uL (0-450); Eosinophils Percent Auto 0.3 % (2-4); Hematocrit 40.4 % (36-46); Hemoglobin 13.5 g/dL (12.0-16.0); Lymphocytes Absolute Auto 1000 /uL (1100-4500); Lymphocytes Percent Auto 7.9 % (25-40); Mean Corpuscular HGB Conc 33.5 % (30-36); Mean Corpuscular Hemoglobin 31.7 PG (26-34); Mean Corpuscular Volume 94.7 fL (80-100); Monocytes Absolute Auto 700 /uL (0-900); Monocytes Percent Auto 5.8 % (3-14); Neutrophils Absolute Auto 10900 /uL (1500-7000); Neutrophils Percent Auto 85.6 % (50-75); Platelet Count 224 X10^3/uL (150-400); Red Blood Cell Count 4.27 X10^6/uL (4.0-5.2); Red Cell Distribution Width 13.6 % (11.6-14.8); White Blood Cell Count 12.8 X10^3/uL (4.5-11.0)
[2023-09-16 21:51] LABS: Alanine Aminotransferase 23 IU/L (<35); Albumin 4.8 g/dL (3.5-5.0); Albumin Globulin Ratio 1.1 (1.0-2.8); Alkaline Phosphatase 64 U/L (38-126); Aspartate Aminotransferase 37 IU/L (14-36); BUN Creatinine Ratio 37.5 (6-22); Bilirubin Total 0.6 mg/dL (0.2-1.3); Blood Urea Nitrogen 30 mg/dL (7-17); Calcium 9.8 mg/dL (8.4-10.2); Carbon Dioxide 27 mmol/L (22-32); Chloride 94 mmol/L (98-107); Estimated Glomerular Filt Rate > 60 mL/min (>60); Globulin 4.3 g/dL (1.7-4.1); Glucose 149 mg/dL (80-110); HEMOLYSIS < 15 (0-50); Lipase 64 U/L (23-300); Potassium 3.3 mmol/L (3.4-5.1); Sodium 135 mmol/L (137-145); Total Protein 9.1 g/dL (6.3-8.2)
[2023-09-16] MEDS: ONDANSETRON 4 MG/2 ML INJ IV (21:52)
[2023-09-16] MEDS: MORPHINE 4 MG/ML INJ IV ×2 (21:52→23:08)
[2023-09-16 21:55] LABS: Creatine Kinase 69 U/L (30-135)
[2023-09-16 22:08] LABS: Troponin I 0.014 ng/mL (0.01-0.034)
[2023-09-16] MEDS: SODIUM CHLORIDE 0.9% 1,000 ML 1000 ML IV (22:08)
[2023-09-16 23:36] LABS: Bacteria Urine None Seen; Culture Indicated Urine Cult Not Indicated; RBC Urine None Seen (0-5/HPF); Squamous Epithelial Cell Urine None Seen (0-5/HPF); WBC Urine None Seen (0-5/HPF)
[2023-09-16 23:58] LABS: Troponin I 0.094 ng/mL (0.01-0.034)
[2023-09-17] VITALS (42 sets, daily range): BP systolic 114–188; BP diastolic 59–108; PULSE 72–128; RESP 9–30; TEMP 37–37.5; O2SAT 91–99
--- NOTE | 2023-09-17 00:18 | DI.CT.S_ITS ---
PROCEDURE: CT ANGIO CHEST ABDOMEN PELVIS INDICATIONS: Abdominal pain, +troponin, hypertension. TECHNIQUE: Precontrast 5 mm thick sections acquired from the lung apices to the iliac crests. After the administration of intravenous contrast, 2.5 mm thick sections again acquired from the lung apices to the iliac crests. Maximum intensity projection (MIP) oblique sagittal and coronal reformats were then acquired. For radiation dose reduction, the following was used: automated exposure control. COMPARISON: None. FINDINGS: Image quality: Excellent. AORTA: Intramural hematoma: Absent Maximum hematoma thickness: Not applicable Focal contrast enhancement: Intramural blood pool (< 2 mm neck or imperceptible communication with aortic lumen): Absent . Ulcer-like projection (broad communication with aortic lumen > 3 mm): Absent . Dissection: Absent Abdirashid classification: Not applicable Maximum aortic diameter: Normal caliber Periaortic hematoma: Absent . CHEST: Lungs and pleura: No acute airspace opacities. No pleural effusions or pneumothorax. Central and peripheral airways are patent and normal in caliber. Mediastinum: Heart size is normal. No pericardial effusion. No mediastinal or hilar adenopathy by size criteria. Central pulmonary arteries are normal in size. Esophagus is normal in caliber. No hiatal hernias. Bones and chest wall: No axillary adenopathy by size criteria. Thyroid gland appears normal where well seen . No suspicious bony lesions. No vertebral body compression fractures. ABDOMEN: Vasculature: Celiac trunk and mesenteric arteries are patent. Renal arteries are also patent. Solid organs: Liver is normal in size and enhancement. Gallbladder is free of inflammation or calcified gallstone . Biliary system is non dilated. Pancreas enhances normally. Spleen is normal in size and enhancement. No adrenal nodules. Both kidneys are normal in size and enhancement, without hydronephrosis. Peritoneum and bowel: No free fluid or air. Bowel loops are normal in caliber and wall thickness. Nodes and vessels: No retroperitoneal or mesenteric adenopathy by size criteria. Inferior vena cava is normal in morphology. Miscellaneous: No ventral hernias. PELVIS: Genitourinary: Bladder wall thickness is normal. Miscellaneous: No inguinal hernias or adenopathy. No ventral hernias. Bones: No suspicious bony lesions. No vertebral body compression fractures. IMPRESSION: Source of current symptoms is not found. No sign of aortic dissection, rupture, or aneurysm. Atherosclerotic calcific plaquing involving the aorta and its main tributaries is relatively prominent in this patient, but currently no arterial occlusion is found. Dictated by: Douglas Jimenez M.D. on 09/17/2023 at 2:09 Approved by: Douglas Jimenez M.D. on 09/17/2023 at 2:13
[2023-09-17] MEDS: ASPIRIN 81 MG CHEW TAB 324 MG PO (00:24)
[2023-09-17] MEDS: NITROGLYCERIN 0.4 MG SL TAB SL (00:25)
[2023-09-17 00:30] LABS: NT-proBNP (BNP-Adult 18+) 1790 pg/mL (<450)
[2023-09-17] MEDS: HYDROMORPHONE 1 MG INJ IV ×3 (00:39→07:36)
[2023-09-17] MEDS: HYDROMORPHONE 0.5 MG INJ IV ×2 (02:11→04:29)
[2023-09-17] MEDS: HEPARIN 5,000 UNIT/ML VIAL 4000 UNIT IV (02:54)
[2023-09-17] MEDS: NITROGLYCERIN 50 MG/250 ML INFUS..BTL IV (03:10)
[2023-09-17] MEDS: ATORVASTATIN 20 MG TABLET 80 MG PO (03:23)
[2023-09-17 03:44] LABS: PTT Partial Thromboplastin Tim 29 SECONDS (26-36)
[2023-09-17] MEDS: HEPARIN DRIP 25,000 UNIT/500 ML IV.SOLN 17.255 UNIT IV (03:47)
--- NOTE | 2023-09-17 03:57 | PC.NURSE ---
Addendum entered by Candy Cage CNA 09/17/23 04:16: bedpan was unsuccessful so francis charge nurse helped this HOSPITAL ADMISSIONS CLERK get pt to bedside commode and it was success. pt became nauseous when sitting upright Original Note: *HOSPITAL ADMISSIONS CLERK note* pt didnt feel comfortable ambulating to bedside commode, pt is using bedpan
--- NOTE | 2023-09-17 04:10 | PC.NURSE ---
0345: Heparin drip started. Next PTT @ 0945.
[2023-09-17 05:21] LABS: Lactate (Lactic Acid) 1.3 mmol/L (0.7-2.1)
[2023-09-17] MEDS: METOPROLOL TARTRATE 5 MG/5 ML INJ IV ×3 (05:42→06:09)
[2023-09-17] MEDS: DILTIAZEM 125 MG/125 ML PIGGYBACK IV (06:55)
--- NOTE | 2023-09-17 07:45 | PC.NURSE ---
Patient was assisted up to the BSC. Upon transfer and patient feeling weak, she sat on an IV tubing and pulled her right AC IV out. IV was discontinued and new IV inserted in patients right forearm. Medication immediately resumed. No further concerns at this time.
== END 2023-09-17 08:00 | disposition short-term general hospital (02) ==
PROVIDERS: Emergency Provider Emergency Medicine; Family Provider Internal Medicine; PCP Internal Medicine
DX: I21.4 Non-ST elevation (NSTEMI) myocardial infarction (principal); R11.2 Nausea with vomiting, unspecified; I10 Essential (primary) hypertension
CPT/HCPCS: 36415; 71275; 74174; 74177; 80053; 81003; 81015; 82550; 83605; 83690; 83880; 84484; 85025; 85730; 93005; 93010; 96361; 96365; 96366; 96368; 96375; 96376; 99285; 99291; J1170; J1644; J2270; J2405; Q9967